=== PATIENT | female | born 1935 | race Caucasian/White ===

== ENCOUNTER 2016-10-28 08:00 | Outpatient (CLI) | payer MEDICARE, OTHER | END 2016-10-28 08:01 | disposition home or self-care (01) | DX: I26.99 Other pulmonary embolism without acute cor pulmonale (principal) ==

== ENCOUNTER 2016-11-11 08:00 | Outpatient (CLI) | payer MEDICARE, OTHER | END 2016-11-11 08:01 | disposition home or self-care (01) | DX: M10.9 Gout, unspecified (principal); I26.99 Other pulmonary embolism without acute cor pulmonale ==

== ENCOUNTER 2016-11-11 14:06 | Outpatient (CLI) | payer MEDICARE, OTHER | END 2016-11-11 14:07 | disposition home or self-care (01) | DX: I26.99 Other pulmonary embolism without acute cor pulmonale (principal) ==

== ENCOUNTER 2016-12-01 10:35 | Outpatient (CLI) | payer MEDICARE, OTHER | END 2016-12-01 23:59 | DX: I26.99 Other pulmonary embolism without acute cor pulmonale (principal) ==

== ENCOUNTER 2016-12-11 08:00 | Outpatient (CLI) | payer MEDICARE, OTHER | END 2016-12-11 23:59 | disposition home or self-care (01) | DX: I26.99 Other pulmonary embolism without acute cor pulmonale (principal) ==

== ENCOUNTER 2016-12-25 13:09 | Outpatient (CLI) | payer MEDICARE, OTHER | END 2016-12-25 13:10 | disposition home or self-care (01) | DX: I26.99 Other pulmonary embolism without acute cor pulmonale (principal) ==

== ENCOUNTER 2016-12-29 10:07 | Outpatient (CLI) | payer MEDICARE, OTHER | END 2016-12-29 10:08 | disposition home or self-care (01) | DX: I26.99 Other pulmonary embolism without acute cor pulmonale (principal) ==

== ENCOUNTER 2017-01-07 08:00 | Outpatient (CLI) | payer MEDICARE, OTHER | END 2017-01-07 23:59 | DX: I26.99 Other pulmonary embolism without acute cor pulmonale (principal) ==

== ENCOUNTER 2017-01-14 15:36 | Outpatient (CLI) | payer MEDICARE, OTHER | END 2017-01-14 15:37 | disposition home or self-care (01) | DX: I26.99 Other pulmonary embolism without acute cor pulmonale (principal) ==

== ENCOUNTER 2017-01-15 09:34 | Outpatient (CLI) | payer MEDICARE, OTHER ==
[2017-01-15] MEDS ORDERED: REGADENOSON 0.4 MG/5 ML SYRINGE IVP ONE (12:16)
== END 2017-01-15 09:35 | disposition home or self-care (01) ==
DX: I25.810 Atherosclerosis of coronary artery bypass graft(s) without angina pectoris (principal); I25.9 Chronic ischemic heart disease, unspecified; I25.2 Old myocardial infarction; Z95.1 Presence of aortocoronary bypass graft
CPT/HCPCS: 78452; 93017; A9500; J2785

== ENCOUNTER 2017-01-16 11:51 | Outpatient (CLI) | payer MEDICARE, OTHER | END 2017-01-16 23:59 | DX: E87.6 Hypokalemia (principal); R25.2 Cramp and spasm; M10.9 Gout, unspecified ==

== ENCOUNTER 2017-01-27 08:00 | Outpatient (CLI) | payer MEDICARE, OTHER | END 2017-01-27 08:01 | DX: I26.99 Other pulmonary embolism without acute cor pulmonale (principal) ==

== ENCOUNTER 2017-01-29 08:00 | Outpatient (CLI) | payer MEDICARE, OTHER | END 2017-01-29 08:01 | disposition home or self-care (01) | DX: I26.99 Other pulmonary embolism without acute cor pulmonale (principal) ==

== ENCOUNTER 2017-02-06 09:04 | Outpatient (CLI) | payer MEDICARE, OTHER | END 2017-02-06 23:59 | DX: I26.99 Other pulmonary embolism without acute cor pulmonale (principal) ==

== ENCOUNTER 2017-02-16 11:35 | Outpatient (CLI) | payer MEDICARE, OTHER | END 2017-02-16 23:59 | disposition home or self-care (01) | DX: I26.99 Other pulmonary embolism without acute cor pulmonale (principal) ==

== ENCOUNTER 2017-02-24 14:11 | Outpatient (CLI) | payer MEDICARE, OTHER | END 2017-02-24 14:12 | disposition home or self-care (01) | DX: I26.99 Other pulmonary embolism without acute cor pulmonale (principal) ==

== ENCOUNTER 2017-03-06 15:07 | Outpatient (CLI) | payer MEDICARE, OTHER | END 2017-03-06 15:08 | disposition home or self-care (01) | LOC: LAB.N 15:07 | PROVIDERS: ATTEND Nurse Practitioner Gerontology | DX: I26.99 Other pulmonary embolism without acute cor pulmonale (principal) | CPT/HCPCS: 85610 ==

== ENCOUNTER 2017-03-13 13:59 | Outpatient (CLI) | payer MEDICARE, OTHER | END 2017-03-13 14:00 | disposition home or self-care (01) | LOC: LAB.N 13:59 | PROVIDERS: ATTEND Nurse Practitioner Gerontology | DX: I26.99 Other pulmonary embolism without acute cor pulmonale (principal) | CPT/HCPCS: 85610 ==

== ENCOUNTER 2017-03-20 11:30 | Outpatient (CLI) | payer MEDICARE, OTHER | END 2017-03-20 11:31 | disposition home or self-care (01) | DX: I26.99 Other pulmonary embolism without acute cor pulmonale (principal) ==

== ENCOUNTER 2017-03-23 08:00 | Outpatient (CLI) | payer MEDICARE, OTHER | END 2017-03-23 08:01 | disposition home or self-care (01) | LOC: LAB.N 08:00 | PROVIDERS: ATTEND Nurse Practitioner Gerontology | DX: I26.99 Other pulmonary embolism without acute cor pulmonale (principal) | CPT/HCPCS: 85610 ==

== ENCOUNTER 2017-03-30 08:00 | Outpatient (CLI) | payer MEDICARE, OTHER ==
[2017-03-30 19:19] LABS: CALCIUM 9.2 mg/dL (8.5-10.3); POTASSIUM 4.2 mmol/L (3.5-5.0)
== END 2017-03-30 08:01 ==
LOC: LAB.N 08:00
PROVIDERS: ATTEND Internal Medicine Cardiovascular Disease
DX: I25.810 Atherosclerosis of coronary artery bypass graft(s) without angina pectoris (principal)
CPT/HCPCS: 36415; 80048; 85610

== ENCOUNTER 2017-03-30 08:00 | Outpatient (CLI) | payer MEDICARE, OTHER | END 2017-03-30 08:01 | LOC: LAB.N 08:00 | PROVIDERS: ATTEND Nurse Practitioner Gerontology | DX: I26.99 Other pulmonary embolism without acute cor pulmonale (principal) | CPT/HCPCS: 85610 ==

== ENCOUNTER 2017-04-06 14:07 | Outpatient (CLI) | payer MEDICARE, OTHER | END 2017-04-06 14:08 | disposition home or self-care (01) | LOC: LAB.N 14:07 | PROVIDERS: ATTEND Nurse Practitioner Gerontology | DX: I26.99 Other pulmonary embolism without acute cor pulmonale (principal) | CPT/HCPCS: 85610 ==

== ENCOUNTER 2017-04-13 13:52 | Outpatient (CLI) | payer MEDICARE, OTHER | END 2017-04-13 13:53 | disposition home or self-care (01) | LOC: LAB.N 13:52 | PROVIDERS: ATTEND Nurse Practitioner Gerontology | DX: I26.99 Other pulmonary embolism without acute cor pulmonale (principal) | CPT/HCPCS: 85610 ==

== ENCOUNTER 2017-04-20 22:11 | Outpatient (CLI) | payer MEDICARE, OTHER | END 2017-04-20 22:12 | disposition home or self-care (01) | LOC: LAB.N 22:11 | PROVIDERS: ATTEND Nurse Practitioner Gerontology | DX: I26.99 Other pulmonary embolism without acute cor pulmonale (principal) | CPT/HCPCS: 85610 ==

== ENCOUNTER 2017-04-27 08:00 | Outpatient (CLI) | payer MEDICARE, OTHER | END 2017-04-27 08:01 | disposition home or self-care (01) | DX: I26.99 Other pulmonary embolism without acute cor pulmonale (principal) ==

== ENCOUNTER 2017-05-11 11:23 | Outpatient (CLI) | payer MEDICARE, OTHER | END 2017-05-11 23:59 | disposition home or self-care (01) | LOC: LAB.N 11:23 | PROVIDERS: ATTEND Nurse Practitioner Gerontology | DX: I26.99 Other pulmonary embolism without acute cor pulmonale (principal) | CPT/HCPCS: 85610 ==

== ENCOUNTER 2017-05-18 11:20 | Outpatient (CLI) | payer MEDICARE, OTHER | END 2017-05-18 11:21 | disposition home or self-care (01) | LOC: LAB.N 11:20 | PROVIDERS: ATTEND Nurse Practitioner Gerontology | DX: I26.99 Other pulmonary embolism without acute cor pulmonale (principal) | CPT/HCPCS: 85610 ==

== ENCOUNTER 2017-05-25 08:00 | Outpatient (CLI) | payer MEDICARE, OTHER | END 2017-05-25 08:01 | disposition home or self-care (01) | LOC: LAB.N 08:00 | PROVIDERS: ATTEND Nurse Practitioner Gerontology | DX: I26.99 Other pulmonary embolism without acute cor pulmonale (principal) | CPT/HCPCS: 85610 ==

== ENCOUNTER 2017-06-05 08:00 | Outpatient (CLI) | payer MEDICARE, OTHER | END 2017-06-05 08:01 | disposition home or self-care (01) | LOC: LAB.N 08:00 | PROVIDERS: ATTEND Nurse Practitioner Gerontology | DX: I26.99 Other pulmonary embolism without acute cor pulmonale (principal) | CPT/HCPCS: 85610 ==

== ENCOUNTER 2017-06-12 10:57 | Outpatient (CLI) | payer MEDICARE, OTHER | END 2017-06-12 10:58 | disposition home or self-care (01) | LOC: LAB.N 10:57 | PROVIDERS: ATTEND Nurse Practitioner Gerontology | DX: I26.99 Other pulmonary embolism without acute cor pulmonale (principal) | CPT/HCPCS: 85610 ==

== ENCOUNTER 2017-06-18 09:39 | Outpatient (CLI) | payer MEDICARE, OTHER | END 2017-06-18 09:40 | disposition home or self-care (01) | LOC: LAB.N 09:39 | PROVIDERS: ATTEND Nurse Practitioner Gerontology | DX: I26.99 Other pulmonary embolism without acute cor pulmonale (principal) | CPT/HCPCS: 85610 ==

== ENCOUNTER 2017-06-26 08:00 | Outpatient (CLI) | payer MEDICARE, OTHER ==
[2017-06-26 18:57] LABS: BASOPHILS # (AUTO) 0.1 10^3/uL (0.0-0.1); BASOPHILS % (AUTO) 0.7 %; EOSINOPHILS # (AUTO) 0.2 10^3/uL (0.0-0.7); EOSINOPHILS % (AUTO) 2.1 %; HCT - HEMATOCRIT 37.5 % (37.0-47.0); HGB - HEMOGLOBIN 12.3 g/dL (12.0-16.0); LYMPHOCYTES # (AUTO) 1.8 10^3/uL (1.5-3.5); LYMPHOCYTES % (AUTO) 24.3 %; MEAN CORPUSCULAR HEMOGLOBIN 30.8 pg (27.0-31.0); MEAN CORPUSCULAR HGB CONC 32.9 g/dL (32.0-36.0); MEAN CORPUSCULAR VOLUME 93.6 fL (81.0-99.0); MEAN PLATELET VOLUME 8.7 fL (7.9-10.8); MONOCYTES # (AUTO) 0.6 10^3/uL (0.0-1.0); MONOCYTES % (AUTO) 7.6 %; NEUTROPHILS # (AUTO) 4.8 10^3/uL (1.5-6.6); NEUTROPHILS % (AUTO) 65.3 %; NUCLEATED RED BLOOD CELLS AUTO 0.1 /100WBC; RED CELL DISTRIBUTION WIDTH 14.4 % (12.0-15.0); UNCORRECTED WHITE BLOOD COUNT 7.3 x10^3/uL; WHITE BLOOD COUNT 7.3 x10^3/uL (4.8-10.8)
[2017-06-26 19:06] LABS: INR 3.2 (0.8-1.2)
[2017-06-26 19:09] LABS: CREATININE 1.1 mg/dL (0.4-1.0); POTASSIUM 3.7 mmol/L (3.5-5.0)
== END 2017-06-26 08:01 | disposition home or self-care (01) ==
LOC: LAB.N 08:00
PROVIDERS: ATTEND Internal Medicine Cardiovascular Disease
DX: I25.5 Ischemic cardiomyopathy (principal)
CPT/HCPCS: 36415; 80048; 85025; 85610

== ENCOUNTER 2017-07-02 13:34 | Outpatient (CLI) | payer MEDICARE, OTHER | END 2017-07-02 13:35 | disposition home or self-care (01) | LOC: LAB.N 13:34 | PROVIDERS: ATTEND Nurse Practitioner Gerontology | DX: I26.99 Other pulmonary embolism without acute cor pulmonale (principal) | CPT/HCPCS: 85610 ==

== ENCOUNTER 2017-07-14 11:04 | Outpatient (CLI) | payer MEDICARE, OTHER | END 2017-07-14 11:05 | disposition home or self-care (01) | LOC: LAB.N 11:04 | PROVIDERS: ATTEND Nurse Practitioner Gerontology | DX: I26.99 Other pulmonary embolism without acute cor pulmonale (principal) | CPT/HCPCS: 85610 ==

== ENCOUNTER 2017-07-21 08:00 | Outpatient (CLI) | payer MEDICARE, OTHER | END 2017-07-21 08:01 | disposition home or self-care (01) | LOC: LAB.N 08:00 | PROVIDERS: ATTEND Nurse Practitioner Gerontology | DX: I26.99 Other pulmonary embolism without acute cor pulmonale (principal) | CPT/HCPCS: 85610 ==

== ENCOUNTER 2017-07-28 08:00 | Outpatient (CLI) | payer MEDICARE, OTHER | END 2017-07-28 08:01 | disposition home or self-care (01) | LOC: LAB.N 08:00 | PROVIDERS: ATTEND Nurse Practitioner Gerontology | DX: I26.99 Other pulmonary embolism without acute cor pulmonale (principal) | CPT/HCPCS: 85610 ==

== ENCOUNTER 2017-08-04 01:01 | Outpatient (CLI) | payer MEDICARE, OTHER | END 2017-08-04 01:02 | disposition home or self-care (01) | LOC: LAB.N 01:01 | PROVIDERS: ATTEND Nurse Practitioner Gerontology | DX: I26.99 Other pulmonary embolism without acute cor pulmonale (principal) | CPT/HCPCS: 85610 ==

== ENCOUNTER 2017-08-11 13:44 | Outpatient (CLI) | payer MEDICARE, OTHER | END 2017-08-11 13:45 | disposition home or self-care (01) | LOC: LAB.N 13:44 | PROVIDERS: ATTEND Nurse Practitioner Gerontology | DX: I26.99 Other pulmonary embolism without acute cor pulmonale (principal) | CPT/HCPCS: 85610 ==

== ENCOUNTER 2017-08-17 08:00 | Outpatient (CLI) | payer MEDICARE, OTHER | END 2017-08-17 23:59 | disposition home or self-care (01) | LOC: LAB.N 08:00 | PROVIDERS: ATTEND Nurse Practitioner Gerontology | DX: I26.99 Other pulmonary embolism without acute cor pulmonale (principal) | CPT/HCPCS: 85610 ==

== ENCOUNTER 2017-08-31 13:15 | Outpatient (CLI) | payer MEDICARE, OTHER | END 2017-08-31 13:16 | disposition home or self-care (01) | LOC: LAB.N 13:15 | PROVIDERS: ATTEND Nurse Practitioner Gerontology | DX: I26.99 Other pulmonary embolism without acute cor pulmonale (principal) | CPT/HCPCS: 85610 ==

== ENCOUNTER 2017-09-07 13:20 | Outpatient (CLI) | payer MEDICARE, OTHER | END 2017-09-07 13:21 | disposition home or self-care (01) | LOC: LAB.N 13:20 | PROVIDERS: ATTEND Nurse Practitioner Gerontology | DX: I26.99 Other pulmonary embolism without acute cor pulmonale (principal) | CPT/HCPCS: 85610 ==

== ENCOUNTER 2017-09-14 13:21 | Outpatient (CLI) | payer MEDICARE, OTHER | END 2017-09-14 13:22 | LOC: LAB.N 13:21 | PROVIDERS: ATTEND Nurse Practitioner Gerontology | DX: I26.99 Other pulmonary embolism without acute cor pulmonale (principal) | CPT/HCPCS: 85610 ==

== ENCOUNTER 2017-09-16 13:45 | Outpatient (CLI) | payer MEDICARE, OTHER | END 2017-09-16 13:46 | LOC: LAB.N 13:45 | PROVIDERS: ATTEND Internal Medicine Cardiovascular Disease | DX: I25.5 Ischemic cardiomyopathy (principal) | CPT/HCPCS: 87640 ==

== ENCOUNTER 2017-09-18 13:23 | Outpatient (CLI) | payer MEDICARE, OTHER | END 2017-09-18 13:24 | disposition home or self-care (01) | LOC: LAB.N 13:23 | PROVIDERS: ATTEND Nurse Practitioner Gerontology | DX: I26.99 Other pulmonary embolism without acute cor pulmonale (principal) | CPT/HCPCS: 85610 ==

== ENCOUNTER 2017-09-25 01:01 | Outpatient (CLI) | payer MEDICARE, OTHER | END 2017-09-25 01:02 | disposition home or self-care (01) | LOC: LAB.N 01:01 | PROVIDERS: ATTEND Nurse Practitioner Gerontology | DX: I26.99 Other pulmonary embolism without acute cor pulmonale (principal) | CPT/HCPCS: 85610 ==

== ENCOUNTER 2017-10-09 14:02 | Outpatient (CLI) | payer MEDICARE, OTHER | END 2017-10-09 14:03 | disposition home or self-care (01) | LOC: LAB.N 14:02 | PROVIDERS: ATTEND Nurse Practitioner Gerontology | DX: I26.99 Other pulmonary embolism without acute cor pulmonale (principal) | CPT/HCPCS: 85610 ==

== ENCOUNTER 2017-10-21 19:32 | Outpatient (CLI) | payer MEDICARE, OTHER | END 2017-10-21 19:33 | disposition home or self-care (01) | LOC: EMS 19:32 | PROVIDERS: ATTEND Surgery | DX: Z45.2 Encounter for adjustment and management of vascular access device (principal) ==

== ENCOUNTER 2017-10-29 08:00 | Outpatient (CLI) | payer MEDICARE, OTHER | END 2017-10-29 08:01 | LOC: LAB.N 08:00 | PROVIDERS: ATTEND Nurse Practitioner Gerontology | DX: I26.99 Other pulmonary embolism without acute cor pulmonale (principal) | CPT/HCPCS: 85610 ==

== ENCOUNTER 2017-11-13 13:21 | Outpatient (CLI) | payer MEDICARE, OTHER | END 2017-11-13 13:22 | disposition home or self-care (01) | LOC: LAB.N 13:21 | PROVIDERS: ATTEND Nurse Practitioner Gerontology | DX: I26.99 Other pulmonary embolism without acute cor pulmonale (principal) | CPT/HCPCS: 85610 ==

== ENCOUNTER 2017-11-17 15:47 | Outpatient (CLI) | payer MEDICARE, OTHER | END 2017-11-17 15:48 | disposition home or self-care (01) | LOC: LAB.N 15:47 | PROVIDERS: ATTEND Nurse Practitioner Gerontology | DX: I26.99 Other pulmonary embolism without acute cor pulmonale (principal) | CPT/HCPCS: 85610 ==

== ENCOUNTER 2017-12-07 08:00 | Outpatient (CLI) | payer MEDICARE, OTHER | END 2017-12-07 08:01 | disposition home or self-care (01) | LOC: LAB.N 08:00 | PROVIDERS: ATTEND Nurse Practitioner Gerontology | DX: I26.99 Other pulmonary embolism without acute cor pulmonale (principal) | CPT/HCPCS: 85610 ==

== ENCOUNTER 2017-12-14 08:00 | Outpatient (CLI) | payer MEDICARE, OTHER | END 2017-12-14 08:01 | disposition home or self-care (01) | LOC: LAB.N 08:00 | PROVIDERS: ATTEND Nurse Practitioner Gerontology | DX: I26.99 Other pulmonary embolism without acute cor pulmonale (principal) | CPT/HCPCS: 85610 ==

== ENCOUNTER 2017-12-16 08:00 | Outpatient (CLI) | payer MEDICARE, OTHER | END 2017-12-16 08:01 | disposition home or self-care (01) | LOC: LAB.N 08:00 | PROVIDERS: ATTEND Nurse Practitioner Gerontology | DX: I26.99 Other pulmonary embolism without acute cor pulmonale (principal) | CPT/HCPCS: 85610 ==

== ENCOUNTER 2017-12-17 11:19 | Outpatient (CLI) | payer MEDICARE, OTHER | END 2017-12-17 11:20 | disposition home or self-care (01) | LOC: LAB.N 11:19 | PROVIDERS: ATTEND Nurse Practitioner Gerontology | DX: I26.99 Other pulmonary embolism without acute cor pulmonale (principal) | CPT/HCPCS: 85610 ==

== ENCOUNTER 2017-12-18 11:42 | Outpatient (CLI) | payer MEDICARE, OTHER | END 2017-12-18 11:43 | disposition home or self-care (01) | LOC: LAB.N 11:42 | PROVIDERS: ATTEND Nurse Practitioner Gerontology | DX: I26.99 Other pulmonary embolism without acute cor pulmonale (principal) | CPT/HCPCS: 85610 ==

== ENCOUNTER 2017-12-21 13:42 | Outpatient (CLI) | payer MEDICARE, OTHER | END 2017-12-21 13:43 | disposition home or self-care (01) | LOC: LAB.N 13:42 | PROVIDERS: ATTEND Nurse Practitioner Gerontology | DX: I26.99 Other pulmonary embolism without acute cor pulmonale (principal) | CPT/HCPCS: 85610 ==

== ENCOUNTER 2017-12-25 08:00 | Outpatient (CLI) | payer MEDICARE, OTHER | END 2017-12-25 08:01 | disposition home or self-care (01) | LOC: LAB.N 08:00 | PROVIDERS: ATTEND Nurse Practitioner Gerontology | DX: I26.99 Other pulmonary embolism without acute cor pulmonale (principal) | CPT/HCPCS: 85610 ==

== ENCOUNTER 2018-01-01 13:27 | Outpatient (CLI) | payer MEDICARE, OTHER | END 2018-01-01 13:28 | disposition home or self-care (01) | LOC: LAB.N 13:27 | PROVIDERS: ATTEND Nurse Practitioner Gerontology | DX: I26.99 Other pulmonary embolism without acute cor pulmonale (principal) | CPT/HCPCS: 85610 ==

== ENCOUNTER 2018-01-02 14:48 | Outpatient (CLI) | payer MEDICARE, OTHER ==
--- NOTE | 2018-01-03 16:58 | Ultrasound Report ---
EXAM: PELVIC ULTRASOUND EXAM DATE: 01/02/2018 04:10 PM. CLINICAL HISTORY: ABNORMAL VAGINAL BLEEDING. COMPARISON: None. TECHNIQUE: Realtime transabdominal pelvic scan performed to identify the uterus and adnexa and as an overview of other pelvic structures, followed by transvaginal scan to provide greater detail of the u terus and adnexa, with static image documentation. FINDINGS: Uterus: Removed. No masses seen. Ovaries: Removed. No masses seen. Free Fluid: None. Other: Gassy pelvis. IMPRESSION: Negative pelvic ultrasound post hysterectomy and bilateral oophorectomy. [facility] Referring Provider Line: [phone] SITE ID: [id number]
== END 2018-01-02 14:49 | disposition home or self-care (01) ==
LOC: DI 14:48
PROVIDERS: ATTEND Nurse Practitioner Gerontology
DX: N93.9 Abnormal uterine and vaginal bleeding, unspecified (principal); Z90.722 Acquired absence of ovaries, bilateral; Z90.710 Acquired absence of both cervix and uterus
CPT/HCPCS: 76830; 76856

== ENCOUNTER 2018-01-05 13:39 | Outpatient (CLI) | payer MEDICARE, OTHER | END 2018-01-05 13:40 | disposition home or self-care (01) | LOC: LAB.N 13:39 | PROVIDERS: ATTEND Nurse Practitioner Gerontology | DX: I26.99 Other pulmonary embolism without acute cor pulmonale (principal) | CPT/HCPCS: 85610 ==

== ENCOUNTER 2018-01-12 08:00 | Outpatient (CLI) | payer MEDICARE, OTHER | END 2018-01-12 08:01 | LOC: LAB.N 08:00 | PROVIDERS: ATTEND Nurse Practitioner Gerontology | DX: I26.99 Other pulmonary embolism without acute cor pulmonale (principal) | CPT/HCPCS: 85610 ==

== ENCOUNTER 2018-01-15 13:50 | Outpatient (CLI) | payer MEDICARE, OTHER | END 2018-01-15 13:51 | disposition home or self-care (01) | LOC: LAB.N 13:50 | PROVIDERS: ATTEND Nurse Practitioner Gerontology | DX: I26.99 Other pulmonary embolism without acute cor pulmonale (principal) | CPT/HCPCS: 85610 ==

== ENCOUNTER 2018-01-19 13:40 | Outpatient (CLI) | payer MEDICARE, OTHER | END 2018-01-19 13:41 | disposition home or self-care (01) | LOC: LAB.N 13:40 | PROVIDERS: ATTEND Nurse Practitioner Gerontology | DX: I26.99 Other pulmonary embolism without acute cor pulmonale (principal) | CPT/HCPCS: 85610 ==

== ENCOUNTER 2018-01-26 08:00 | Outpatient (CLI) | payer MEDICARE, OTHER | END 2018-01-26 08:01 | disposition home or self-care (01) | LOC: LAB.N 08:00 | PROVIDERS: ATTEND Nurse Practitioner Gerontology | DX: I26.99 Other pulmonary embolism without acute cor pulmonale (principal) | CPT/HCPCS: 85610 ==

== ENCOUNTER 2018-02-02 08:00 | Outpatient (CLI) | payer MEDICARE, OTHER | END 2018-02-02 08:01 | LOC: LAB.N 08:00 | PROVIDERS: ATTEND Nurse Practitioner Gerontology | DX: I26.99 Other pulmonary embolism without acute cor pulmonale (principal) | CPT/HCPCS: 85610 ==

== ENCOUNTER 2018-02-16 13:39 | Outpatient (CLI) | payer MEDICARE, OTHER | END 2018-02-16 13:40 | LOC: LAB.N 13:39 | PROVIDERS: ATTEND Nurse Practitioner Gerontology | DX: I26.99 Other pulmonary embolism without acute cor pulmonale (principal) | CPT/HCPCS: 85610 ==

== ENCOUNTER 2018-03-01 14:29 | Outpatient (CLI) | payer MEDICARE, OTHER | END 2018-03-01 14:30 | disposition home or self-care (01) | LOC: LAB.N 14:29 | PROVIDERS: ATTEND Nurse Practitioner Gerontology | DX: I26.99 Other pulmonary embolism without acute cor pulmonale (principal) | CPT/HCPCS: 85610 ==

== ENCOUNTER 2018-03-08 08:00 | Outpatient (CLI) | payer MEDICARE, OTHER | END 2018-03-08 08:01 | LOC: LAB.N 08:00 | PROVIDERS: ATTEND Nurse Practitioner Gerontology | DX: I26.99 Other pulmonary embolism without acute cor pulmonale (principal) | CPT/HCPCS: 85610 ==

== ENCOUNTER 2018-03-12 14:32 | Outpatient (CLI) | payer MEDICARE, OTHER | END 2018-03-12 14:33 | disposition home or self-care (01) | LOC: LAB.N 14:32 | PROVIDERS: ATTEND Nurse Practitioner Gerontology | DX: I26.99 Other pulmonary embolism without acute cor pulmonale (principal) | CPT/HCPCS: 85610 ==

== ENCOUNTER 2018-03-19 13:11 | Outpatient (CLI) | payer MEDICARE, OTHER | END 2018-03-19 13:12 | disposition home or self-care (01) | LOC: LAB.N 13:11 | PROVIDERS: ATTEND Nurse Practitioner Gerontology | DX: I26.99 Other pulmonary embolism without acute cor pulmonale (principal) | CPT/HCPCS: 85610 ==

== ENCOUNTER 2018-03-22 14:57 | Outpatient (CLI) | payer MEDICARE, OTHER | END 2018-03-22 14:58 | disposition home or self-care (01) | LOC: LAB.N 14:57 | PROVIDERS: ATTEND Nurse Practitioner Gerontology | DX: I26.99 Other pulmonary embolism without acute cor pulmonale (principal) | CPT/HCPCS: 85610 ==

== ENCOUNTER 2018-03-29 13:11 | Outpatient (CLI) | payer MEDICARE, OTHER | END 2018-03-29 13:12 | disposition home or self-care (01) | LOC: LAB.N 13:11 | PROVIDERS: ATTEND Nurse Practitioner Gerontology | DX: I26.99 Other pulmonary embolism without acute cor pulmonale (principal) | CPT/HCPCS: 85610 ==

== ENCOUNTER 2018-04-05 08:00 | Outpatient (CLI) | payer MEDICARE, OTHER | END 2018-04-05 08:01 | disposition home or self-care (01) | LOC: LAB.N 08:00 | PROVIDERS: ATTEND Nurse Practitioner Gerontology | DX: I26.99 Other pulmonary embolism without acute cor pulmonale (principal) | CPT/HCPCS: 85610 ==

== ENCOUNTER 2018-04-12 08:00 | Outpatient (CLI) | END 2018-04-12 08:01 | disposition home or self-care (01) ==

== ENCOUNTER 2018-04-26 10:24 | Outpatient (CLI) | payer MEDICARE, OTHER ==
[2018-04-26 13:06] LABS: BASOPHILS % (AUTO) 0.4 %; EOSINOPHILS # (AUTO) 0.1 10^3/uL (0.0-0.7); EOSINOPHILS % (AUTO) 1.5 %; LYMPHOCYTES # (AUTO) 1.6 10^3/uL (1.5-3.5); MEAN CORPUSCULAR HEMOGLOBIN 30.8 pg (27.0-31.0); MEAN CORPUSCULAR HGB CONC 32.7 g/dL (32.0-36.0); MEAN CORPUSCULAR VOLUME 94.2 fL (81.0-99.0); MEAN PLATELET VOLUME 8.5 fL (7.9-10.8); MONOCYTES # (AUTO) 0.5 10^3/uL (0.0-1.0); MONOCYTES % (AUTO) 6.4 %; NEUTROPHILS # (AUTO) 5.9 10^3/uL (1.5-6.6); NEUTROPHILS % (AUTO) 71.7 %; PLT - PLATELET COUNT 282 10^3/uL (130-450); RED BLOOD COUNT 4.23 10^6/uL (4.20-5.40); RED CELL DISTRIBUTION WIDTH 14.1 % (12.0-15.0); WHITE BLOOD COUNT 8.2 x10^3/uL (4.8-10.8)
== END 2018-04-26 10:25 ==
LOC: LAB.N 10:24
PROVIDERS: ATTEND Nurse Practitioner Gerontology
DX: I26.99 Other pulmonary embolism without acute cor pulmonale (principal); M25.562 Pain in left knee
CPT/HCPCS: 36415; 85025; 85610; 85651; 86140

== ENCOUNTER 2018-04-30 08:57 | Outpatient (CLI) | payer MEDICARE, OTHER | END 2018-04-30 08:58 | disposition home or self-care (01) | LOC: LAB.N 08:57 | PROVIDERS: ATTEND Nurse Practitioner Gerontology | DX: I26.99 Other pulmonary embolism without acute cor pulmonale (principal) | CPT/HCPCS: 85610 ==

== ENCOUNTER 2018-05-07 08:00 | Outpatient (CLI) | payer MEDICARE, OTHER | END 2018-05-07 08:01 | disposition home or self-care (01) | LOC: LAB.N 08:00 | PROVIDERS: ATTEND Nurse Practitioner Gerontology | DX: I26.99 Other pulmonary embolism without acute cor pulmonale (principal) | CPT/HCPCS: 85610 ==

== ENCOUNTER 2018-05-14 11:27 | Outpatient (CLI) | payer MEDICARE, OTHER | END 2018-05-14 11:28 | disposition home or self-care (01) | LOC: LAB.N 11:27 | PROVIDERS: ATTEND Nurse Practitioner Gerontology | DX: I26.99 Other pulmonary embolism without acute cor pulmonale (principal) | CPT/HCPCS: 85610 ==

== ENCOUNTER 2018-05-24 13:17 | Outpatient (CLI) | payer MEDICARE, OTHER | END 2018-05-24 13:18 | disposition home or self-care (01) | LOC: LAB.N 13:17 | PROVIDERS: ATTEND Nurse Practitioner Gerontology | DX: I26.99 Other pulmonary embolism without acute cor pulmonale (principal) | CPT/HCPCS: 85610 ==

== ENCOUNTER 2018-05-31 08:00 | Outpatient (CLI) | payer MEDICARE, OTHER | END 2018-05-31 08:01 | LOC: LAB.N 08:00 | PROVIDERS: ATTEND Nurse Practitioner Gerontology | DX: I26.99 Other pulmonary embolism without acute cor pulmonale (principal) | CPT/HCPCS: 85610 ==

== ENCOUNTER 2018-06-14 08:00 | Outpatient (CLI) | payer MEDICARE, OTHER | END 2018-06-14 08:01 | disposition home or self-care (01) | LOC: LAB.N 08:00 | PROVIDERS: ATTEND Nurse Practitioner Gerontology | DX: I26.99 Other pulmonary embolism without acute cor pulmonale (principal) | CPT/HCPCS: 85610 ==

== ENCOUNTER 2018-06-25 14:15 | Outpatient (CLI) | payer MEDICARE, OTHER | END 2018-06-25 14:16 | disposition home or self-care (01) | LOC: LAB.N 14:15 | PROVIDERS: ATTEND Nurse Practitioner Gerontology | DX: I26.99 Other pulmonary embolism without acute cor pulmonale (principal) | CPT/HCPCS: 85610 ==

== ENCOUNTER 2018-06-28 08:00 | Outpatient (CLI) | payer MEDICARE, OTHER | END 2018-06-28 08:01 | LOC: LAB.N 08:00 | PROVIDERS: ATTEND Nurse Practitioner Gerontology | DX: I48.91 Unspecified atrial fibrillation (principal) | CPT/HCPCS: 85610 ==

== ENCOUNTER 2018-07-05 15:07 | Outpatient (CLI) | payer MEDICARE, OTHER | END 2018-07-05 15:08 | disposition home or self-care (01) | LOC: LAB.N 15:07 | PROVIDERS: ATTEND Nurse Practitioner Gerontology | DX: I26.99 Other pulmonary embolism without acute cor pulmonale (principal) | CPT/HCPCS: 85610 ==

== ENCOUNTER 2018-07-12 08:00 | Outpatient (CLI) | payer MEDICARE, OTHER | END 2018-07-12 08:01 | disposition home or self-care (01) | LOC: LAB.N 08:00 | PROVIDERS: ATTEND Nurse Practitioner Gerontology | DX: I26.99 Other pulmonary embolism without acute cor pulmonale (principal) | CPT/HCPCS: 85610 ==

== ENCOUNTER 2018-07-22 13:39 | Outpatient (CLI) | payer MEDICARE, OTHER | END 2018-07-22 13:40 | LOC: LAB.N 13:39 | PROVIDERS: ATTEND Nurse Practitioner Gerontology | DX: I26.99 Other pulmonary embolism without acute cor pulmonale (principal) | CPT/HCPCS: 85610 ==

== ENCOUNTER 2018-09-03 11:30 | Outpatient (CLI) | payer MEDICARE, OTHER | END 2018-09-03 11:31 | disposition home or self-care (01) | LOC: LAB.N 11:30 | PROVIDERS: ATTEND Nurse Practitioner Gerontology | DX: I26.99 Other pulmonary embolism without acute cor pulmonale (principal) | CPT/HCPCS: 85610 ==

== ENCOUNTER 2018-09-08 09:51 | Outpatient (CLI) | payer MEDICARE, OTHER ==
[2018-08-30 18:56] LABS: INR 1.2 (0.8-1.2); PT - PROTHROMBIN TIME 13.9 secs (9.9-12.6)
== END 2018-09-08 09:52 | disposition home or self-care (01) ==
LOC: LAB.N 09:51
PROVIDERS: ATTEND Nurse Practitioner Gerontology
DX: Z79.01 Long term (current) use of anticoagulants (principal); I26.99 Other pulmonary embolism without acute cor pulmonale
CPT/HCPCS: 36415; 85610

== ENCOUNTER 2018-09-08 13:58 | Outpatient (CLI) | payer MEDICARE, OTHER | END 2018-09-08 13:59 | disposition home or self-care (01) | LOC: LAB.N 13:58 | PROVIDERS: ATTEND Nurse Practitioner Gerontology | DX: I26.99 Other pulmonary embolism without acute cor pulmonale (principal); Z79.01 Long term (current) use of anticoagulants | CPT/HCPCS: 36415; 85610 ==

== ENCOUNTER 2018-09-13 08:00 | Outpatient (CLI) | payer MEDICARE, OTHER | END 2018-09-13 23:59 | disposition home or self-care (01) | LOC: LAB.N 08:00 | PROVIDERS: ATTEND Nurse Practitioner Gerontology | DX: I26.99 Other pulmonary embolism without acute cor pulmonale (principal) | CPT/HCPCS: 85610 ==

== ENCOUNTER 2018-09-24 08:00 | Outpatient (CLI) | payer MEDICARE, OTHER | END 2018-09-24 23:59 | LOC: LAB.N 08:00 | PROVIDERS: ATTEND Nurse Practitioner Gerontology | DX: I26.99 Other pulmonary embolism without acute cor pulmonale (principal) | CPT/HCPCS: 85610 ==

== ENCOUNTER 2018-10-04 11:22 | Outpatient (CLI) | payer MEDICARE, OTHER | END 2018-10-04 23:59 | disposition home or self-care (01) | LOC: LAB.N 11:22 | PROVIDERS: ATTEND Nurse Practitioner Gerontology | DX: I26.99 Other pulmonary embolism without acute cor pulmonale (principal) | CPT/HCPCS: 85610 ==

== ENCOUNTER 2018-11-09 08:00 | Outpatient (CLI) | payer MEDICARE, OTHER | END 2018-11-09 23:59 | disposition home or self-care (01) | LOC: LAB.N 08:00 | PROVIDERS: ATTEND Nurse Practitioner Gerontology | DX: I26.99 Other pulmonary embolism without acute cor pulmonale (principal) | CPT/HCPCS: 85610 ==

== ENCOUNTER 2018-11-16 09:42 | Outpatient (CLI) | payer MEDICARE, OTHER | END 2018-11-16 09:43 | disposition home or self-care (01) | LOC: LAB.N 09:42 | PROVIDERS: ATTEND Nurse Practitioner Gerontology | DX: I26.99 Other pulmonary embolism without acute cor pulmonale (principal) | CPT/HCPCS: 85610 ==

== ENCOUNTER 2018-11-19 08:00 | Outpatient (CLI) | payer MEDICARE, OTHER | END 2018-11-19 23:59 | disposition home or self-care (01) | LOC: LAB.N 08:00 | PROVIDERS: ATTEND Nurse Practitioner Gerontology | DX: I26.99 Other pulmonary embolism without acute cor pulmonale (principal) | CPT/HCPCS: 85610 ==

== ENCOUNTER 2018-11-23 11:00 | Outpatient (CLI) | payer MEDICARE, OTHER | END 2018-12-13 23:59 | disposition home or self-care (01) | LOC: LAB.N 11:00 | PROVIDERS: ATTEND Nurse Practitioner Gerontology | DX: I26.99 Other pulmonary embolism without acute cor pulmonale (principal) | CPT/HCPCS: 85610 ==

== ENCOUNTER 2018-12-06 08:00 | Outpatient (CLI) | payer MEDICARE, OTHER | END 2018-12-06 23:59 | disposition home or self-care (01) | LOC: LAB.N 08:00 | PROVIDERS: ATTEND Nurse Practitioner Gerontology | DX: I26.99 Other pulmonary embolism without acute cor pulmonale (principal) | CPT/HCPCS: 85610 ==

== ENCOUNTER 2018-12-27 13:03 | Outpatient (CLI) | payer MEDICARE, OTHER | END 2018-12-27 23:59 | disposition home or self-care (01) | LOC: LAB.N 13:03 | PROVIDERS: ATTEND Nurse Practitioner Gerontology | DX: I26.99 Other pulmonary embolism without acute cor pulmonale (principal) | CPT/HCPCS: 85610 ==

== ENCOUNTER 2019-01-25 08:00 | Outpatient (CLI) | payer MEDICARE, OTHER ==
[2019-01-25 19:01] LABS: BASOPHILS % (AUTO) 0.5 %; EOSINOPHILS # (AUTO) 0.3 10^3/uL (0.0-0.7); EOSINOPHILS % (AUTO) 3.3 %; HGB - HEMOGLOBIN 12.5 g/dL (12.0-16.0); LYMPHOCYTES # (AUTO) 1.7 10^3/uL (1.5-3.5); LYMPHOCYTES % (AUTO) 21.2 %; MEAN CORPUSCULAR HEMOGLOBIN 30.7 pg (27.0-31.0); MEAN CORPUSCULAR HGB CONC 32.5 g/dL (32.0-36.0); MEAN CORPUSCULAR VOLUME 94.3 fL (81.0-99.0); MEAN PLATELET VOLUME 8.3 fL (7.9-10.8); MONOCYTES # (AUTO) 0.6 10^3/uL (0.0-1.0); MONOCYTES % (AUTO) 7.2 %; NEUTROPHILS # (AUTO) 5.4 10^3/uL (1.5-6.6); NEUTROPHILS % (AUTO) 67.8 %; PLT - PLATELET COUNT 276 10^3/uL (130-450); RED BLOOD COUNT 4.09 10^6/uL (4.20-5.40); RED CELL DISTRIBUTION WIDTH 14.2 % (12.0-15.0)
[2019-01-25 19:21] LABS: HEMOGLOBIN A1C 0.59 g/dL; HEMOGLOBIN A1C % 6.3 % (4.6-6.2)
[2019-01-25 19:29] LABS: ALBUMIN 3.6 g/dL (3.2-5.5); ALBUMIN/GLOBULIN RATIO 1.1 (1.0-2.2); ALKALINE PHOSPHATASE 81 IU/L (42-121); ALT ALANINE AMINOTRANSFERASE 15 IU/L (10-60); AST ASPARTATE AMINOTRANSFERASE 22 IU/L (10-42); BILIRUBIN,TOTAL 0.6 mg/dL (0.2-1.0); BUN - BLOOD UREA NITROGEN 15 mg/dL (6-20); CALCIUM 8.7 mg/dL (8.5-10.3); CARBON DIOXIDE - CO2 28 mmol/L (21-32); CHLORIDE 103 mmol/L (101-111); CHOL/HDL RATIO 3.1 (<4.4); CHOLESTEROL 144 mg/dL; CREATININE 0.8 mg/dL (0.4-1.0); GFR - MDRD 68 (>89); GLUCOSE 133 mg/dL (70-100); HDL CHOLESTEROL 47 mg/dL; LDL CHOLESTEROL,CALCULATED 68 mg/dL; LDL/HDL RATIO 1.4 (<4.4); SODIUM 136 mmol/L (135-145); TOTAL PROTEIN 6.9 g/dL (6.7-8.2); VLDL CHOLESTEROL 29 mg/dL
== END 2019-01-25 23:59 | disposition home or self-care (01) ==
LOC: LAB.N 08:00
PROVIDERS: ATTEND Nurse Practitioner Gerontology
DX: I26.99 Other pulmonary embolism without acute cor pulmonale (principal); E78.5 Hyperlipidemia, unspecified; E11.40 Type 2 diabetes mellitus with diabetic neuropathy, unspecified; I10 Essential (primary) hypertension
CPT/HCPCS: 36415; 80053; 80061; 83036; 83721; 85025; 85610

== ENCOUNTER 2019-02-08 08:00 | Outpatient (CLI) | payer MEDICARE, OTHER | END 2019-02-08 08:01 | disposition home or self-care (01) | LOC: LAB.N 08:00 | PROVIDERS: ATTEND Nurse Practitioner Gerontology | DX: I26.99 Other pulmonary embolism without acute cor pulmonale (principal) | CPT/HCPCS: 85610 ==

== ENCOUNTER 2019-02-23 13:33 | Outpatient (CLI) | payer MEDICARE, OTHER | END 2019-02-23 23:59 | disposition home or self-care (01) | LOC: LAB.N 13:33 | PROVIDERS: ATTEND Nurse Practitioner Gerontology | DX: I26.99 Other pulmonary embolism without acute cor pulmonale (principal) | CPT/HCPCS: 85610 ==

== ENCOUNTER 2019-03-09 13:57 | Outpatient (CLI) | payer MEDICARE, OTHER | END 2019-03-09 23:59 | disposition home or self-care (01) | LOC: LAB.N 13:57 | PROVIDERS: ATTEND Nurse Practitioner Gerontology | DX: I26.99 Other pulmonary embolism without acute cor pulmonale (principal) | CPT/HCPCS: 85610 ==

== ENCOUNTER 2019-04-08 08:00 | Outpatient (CLI) | payer MEDICARE, OTHER | END 2019-04-08 23:59 | disposition home or self-care (01) | LOC: LAB.N 08:00 | PROVIDERS: ATTEND Nurse Practitioner Gerontology | DX: I26.99 Other pulmonary embolism without acute cor pulmonale (principal) | CPT/HCPCS: 85610 ==

== ENCOUNTER 2019-05-13 08:00 | Outpatient (CLI) | payer MEDICARE, OTHER | END 2019-05-13 23:59 | disposition home or self-care (01) | LOC: LAB.N 08:00 | PROVIDERS: ATTEND Nurse Practitioner Gerontology | DX: I26.99 Other pulmonary embolism without acute cor pulmonale (principal) | CPT/HCPCS: 85610 ==

== ENCOUNTER 2019-05-20 | Outpatient (CLI) | payer MEDICARE, OTHER | END 2019-05-20 23:59 | disposition home or self-care (01) | DX: I26.99 Other pulmonary embolism without acute cor pulmonale (principal) ==

== ENCOUNTER 2019-05-27 08:00 | Outpatient (CLI) | payer MEDICARE, OTHER | END 2019-05-27 23:59 | disposition home or self-care (01) | LOC: LAB.N 08:00 | PROVIDERS: ATTEND Nurse Practitioner Gerontology | DX: I26.99 Other pulmonary embolism without acute cor pulmonale (principal) | CPT/HCPCS: 85610 ==

== ENCOUNTER 2019-06-10 13:53 | Outpatient (CLI) | payer MEDICARE, OTHER | END 2019-06-10 13:57 | disposition home or self-care (01) | LOC: LAB.N 13:53 | PROVIDERS: ATTEND Nurse Practitioner Gerontology | DX: I26.99 Other pulmonary embolism without acute cor pulmonale (principal) | CPT/HCPCS: 85610 ==

== ENCOUNTER 2019-06-17 08:00 | Outpatient (CLI) | payer MEDICARE, OTHER | END 2019-06-17 23:59 | disposition home or self-care (01) | LOC: LAB.N 08:00 | PROVIDERS: ATTEND Nurse Practitioner Gerontology | DX: I26.99 Other pulmonary embolism without acute cor pulmonale (principal) | CPT/HCPCS: 85610 ==

== ENCOUNTER 2019-06-24 08:00 | Outpatient (CLI) | payer MEDICARE, OTHER | END 2019-06-24 23:59 | disposition home or self-care (01) | LOC: LAB.N 08:00 | PROVIDERS: ATTEND Nurse Practitioner Gerontology | DX: I26.99 Other pulmonary embolism without acute cor pulmonale (principal) | CPT/HCPCS: 85610 ==

== ENCOUNTER 2019-07-08 13:39 | Outpatient (CLI) | payer MEDICARE, OTHER | END 2019-07-08 13:45 | disposition home or self-care (01) | LOC: LAB.N 13:39 | PROVIDERS: ATTEND Nurse Practitioner Gerontology | DX: I26.99 Other pulmonary embolism without acute cor pulmonale (principal) | CPT/HCPCS: 85610 ==

== ENCOUNTER 2019-07-12 13:39 | Outpatient (CLI) | payer MEDICARE, OTHER | END 2019-07-12 13:45 | disposition home or self-care (01) | LOC: LAB.N 13:39 | PROVIDERS: ATTEND Nurse Practitioner Gerontology | DX: I26.99 Other pulmonary embolism without acute cor pulmonale (principal) | CPT/HCPCS: 85610 ==

== ENCOUNTER 2019-07-20 12:20 | Outpatient (CLI) | payer MEDICARE, OTHER | END 2019-07-20 23:59 | disposition home or self-care (01) | LOC: LAB.N 12:20 | PROVIDERS: ATTEND Nurse Practitioner Gerontology | DX: I26.99 Other pulmonary embolism without acute cor pulmonale (principal) | CPT/HCPCS: 85610 ==

== ENCOUNTER 2019-07-27 08:00 | Outpatient (CLI) | payer MEDICARE, OTHER | END 2019-07-27 23:59 | disposition home or self-care (01) | LOC: LAB.N 08:00 | PROVIDERS: ATTEND Nurse Practitioner Gerontology | DX: I26.99 Other pulmonary embolism without acute cor pulmonale (principal) | CPT/HCPCS: 85610 ==

== ENCOUNTER 2019-08-03 08:00 | Outpatient (CLI) | payer MEDICARE, OTHER | END 2019-08-03 23:59 | disposition home or self-care (01) | LOC: LAB.N 08:00 | PROVIDERS: ATTEND Nurse Practitioner Gerontology | DX: I26.99 Other pulmonary embolism without acute cor pulmonale (principal) | CPT/HCPCS: 85610 ==

== ENCOUNTER 2019-08-10 08:00 | Outpatient (CLI) | payer MEDICARE, OTHER | END 2019-08-10 23:59 | disposition home or self-care (01) | LOC: LAB.N 08:00 | PROVIDERS: ATTEND Nurse Practitioner Gerontology | DX: I26.99 Other pulmonary embolism without acute cor pulmonale (principal) | CPT/HCPCS: 85610 ==

== ENCOUNTER 2019-08-22 14:40 | Outpatient (CLI) | payer MEDICARE, OTHER ==
[2019-08-22 19:47] LABS: HB2 TOTAL 12.3 g/dL; HEMOGLOBIN A1C 0.58 g/dL; HEMOGLOBIN A1C % 6.5 % (4.6-6.2)
== END 2019-08-22 23:59 | disposition home or self-care (01) ==
LOC: LAB.N 14:40
PROVIDERS: ATTEND Nurse Practitioner Gerontology
DX: I26.99 Other pulmonary embolism without acute cor pulmonale (principal); E11.42 Type 2 diabetes mellitus with diabetic polyneuropathy
CPT/HCPCS: 36415; 83036; 85610

== ENCOUNTER 2019-08-29 12:32 | Outpatient (CLI) | payer MEDICARE, OTHER | END 2019-08-29 23:59 | disposition home or self-care (01) | LOC: LAB.N 12:32 | PROVIDERS: ATTEND Nurse Practitioner Gerontology | DX: I26.99 Other pulmonary embolism without acute cor pulmonale (principal) | CPT/HCPCS: 85610 ==

== ENCOUNTER 2019-09-12 15:11 | Outpatient (CLI) | payer MEDICARE, OTHER | END 2019-09-12 23:59 | disposition home or self-care (01) | LOC: LAB.N 15:11 | PROVIDERS: ATTEND Nurse Practitioner Gerontology | DX: I26.99 Other pulmonary embolism without acute cor pulmonale (principal) | CPT/HCPCS: 85610 ==

== ENCOUNTER 2019-09-16 11:52 | Outpatient (CLI) | payer MEDICARE, OTHER | END 2019-09-16 23:59 | disposition home or self-care (01) | LOC: LAB.N 11:52 | PROVIDERS: ATTEND Nurse Practitioner Gerontology | DX: I26.99 Other pulmonary embolism without acute cor pulmonale (principal) | CPT/HCPCS: 85610 ==

== ENCOUNTER 2019-09-23 11:55 | Outpatient (CLI) | payer MEDICARE, OTHER | END 2019-09-23 23:59 | disposition home or self-care (01) | LOC: LAB.N 11:55 | PROVIDERS: ATTEND Nurse Practitioner Gerontology | DX: I26.99 Other pulmonary embolism without acute cor pulmonale (principal) | CPT/HCPCS: 85610 ==

== ENCOUNTER 2019-09-28 14:05 | Outpatient (CLI) | payer MEDICARE, OTHER ==
[2019-09-28 19:07] LABS: CREATININE 1.2 mg/dL (0.4-1.0); URIC ACID 7.6 mg/dL (2.6-7.2)
== END 2019-09-28 23:59 | disposition home or self-care (01) ==
LOC: LAB.N 14:05
PROVIDERS: ATTEND Physician Assistant Medical
DX: E87.6 Hypokalemia (principal); M10.9 Gout, unspecified; I26.99 Other pulmonary embolism without acute cor pulmonale
CPT/HCPCS: 36415; 80048; 84550; 85610

== ENCOUNTER 2019-10-05 12:24 | Outpatient (CLI) | payer MEDICARE, OTHER | END 2019-10-05 23:59 | disposition home or self-care (01) | LOC: LAB.N 12:24 | PROVIDERS: ATTEND Physician Assistant Medical | DX: I26.99 Other pulmonary embolism without acute cor pulmonale (principal) | CPT/HCPCS: 36415; 80048; 84550; 85610 ==

== ENCOUNTER 2019-10-07 11:43 | Outpatient (CLI) | payer MEDICARE, OTHER | END 2019-10-07 23:59 | disposition home or self-care (01) | LOC: LAB.N 11:43 | PROVIDERS: ATTEND Nurse Practitioner Gerontology | DX: I26.99 Other pulmonary embolism without acute cor pulmonale (principal) | CPT/HCPCS: 85610 ==

== ENCOUNTER 2019-10-14 08:00 | Outpatient (CLI) | payer MEDICARE, OTHER | END 2019-10-14 23:59 | LOC: LAB.N 08:00 | PROVIDERS: ATTEND Nurse Practitioner Gerontology | DX: I26.99 Other pulmonary embolism without acute cor pulmonale (principal) | CPT/HCPCS: 85610 ==

== ENCOUNTER 2019-10-21 11:51 | Outpatient (CLI) | payer MEDICARE, OTHER | END 2019-10-21 23:59 | disposition home or self-care (01) | LOC: LAB.N 11:51 | PROVIDERS: ATTEND Nurse Practitioner Gerontology | DX: I26.99 Other pulmonary embolism without acute cor pulmonale (principal) | CPT/HCPCS: 85610 ==

== ENCOUNTER 2019-10-27 08:00 | Outpatient (CLI) | payer MEDICARE, OTHER | END 2019-10-27 23:59 | disposition home or self-care (01) | LOC: LAB.N 08:00 | PROVIDERS: ATTEND Nurse Practitioner Gerontology | DX: I26.99 Other pulmonary embolism without acute cor pulmonale (principal) | CPT/HCPCS: 85610 ==

== ENCOUNTER 2019-11-07 14:45 | Outpatient (CLI) | payer MEDICARE, OTHER | END 2019-11-07 23:59 | disposition home or self-care (01) | LOC: LAB.N 14:45 | PROVIDERS: ATTEND Nurse Practitioner Gerontology | DX: I26.99 Other pulmonary embolism without acute cor pulmonale (principal) | CPT/HCPCS: 85610 ==

== ENCOUNTER 2019-11-08 08:00 | Outpatient (CLI) | payer MEDICARE, OTHER | END 2019-11-08 23:59 | disposition home or self-care (01) | LOC: LAB.N 08:00 | PROVIDERS: ATTEND Nurse Practitioner Gerontology | DX: I26.99 Other pulmonary embolism without acute cor pulmonale (principal) | CPT/HCPCS: 85610 ==

== ENCOUNTER 2019-11-09 08:00 | Outpatient (CLI) | payer MEDICARE, OTHER | END 2019-11-09 23:59 | LOC: LAB.N 08:00 | PROVIDERS: ATTEND Nurse Practitioner Gerontology | DX: I26.99 Other pulmonary embolism without acute cor pulmonale (principal) | CPT/HCPCS: 85610 ==

== ENCOUNTER 2019-11-10 08:00 | Outpatient (CLI) | payer MEDICARE, OTHER | END 2019-11-10 23:59 | LOC: LAB.N 08:00 | PROVIDERS: ATTEND Nurse Practitioner Gerontology | DX: I26.99 Other pulmonary embolism without acute cor pulmonale (principal) | CPT/HCPCS: 85610 ==

== ENCOUNTER 2019-11-28 12:30 | Outpatient (CLI) | payer MEDICARE, OTHER | END 2019-11-28 23:59 | disposition home or self-care (01) | LOC: LAB.N 12:30 | PROVIDERS: ATTEND Nurse Practitioner Gerontology | DX: I26.99 Other pulmonary embolism without acute cor pulmonale (principal) | CPT/HCPCS: 85610 ==

== ENCOUNTER 2019-12-09 14:03 | Outpatient (CLI) | payer MEDICARE, OTHER | END 2019-12-09 23:59 | disposition home or self-care (01) | LOC: LAB.N 14:03 | PROVIDERS: ATTEND Nurse Practitioner Gerontology | DX: I26.99 Other pulmonary embolism without acute cor pulmonale (principal) | CPT/HCPCS: 85610 ==

== ENCOUNTER 2019-12-23 12:00 | Outpatient (CLI) | payer MEDICARE, OTHER | END 2019-12-23 23:59 | disposition home or self-care (01) | LOC: LAB.N 12:00 | PROVIDERS: ATTEND Nurse Practitioner Gerontology | DX: M10.9 Gout, unspecified (principal) | CPT/HCPCS: 36415; 84550; 85610 ==

== ENCOUNTER 2019-12-30 12:13 | Outpatient (CLI) | payer MEDICARE, OTHER | END 2019-12-30 23:59 | disposition home or self-care (01) | LOC: LAB.N 12:13 | PROVIDERS: ATTEND Nurse Practitioner Gerontology | DX: I26.99 Other pulmonary embolism without acute cor pulmonale (principal) | CPT/HCPCS: 85610 ==

== ENCOUNTER 2020-01-27 08:00 | Outpatient (CLI) | payer MEDICARE, OTHER | END 2020-01-27 23:59 | disposition home or self-care (01) | LOC: LAB.WCP 08:00 | PROVIDERS: ATTEND Family Medicine | DX: I48.91 Unspecified atrial fibrillation (principal); Z79.01 Long term (current) use of anticoagulants ==

== ENCOUNTER 2020-03-23 08:00 | Outpatient (CLI) | payer MEDICARE, OTHER | END 2020-03-23 23:59 | disposition home or self-care (01) | LOC: LAB.WCP 08:00 | PROVIDERS: ATTEND Family Medicine | DX: I48.91 Unspecified atrial fibrillation (principal); Z79.01 Long term (current) use of anticoagulants ==

== ENCOUNTER 2020-04-06 08:00 | Outpatient (CLI) | payer MEDICARE, OTHER | END 2020-04-06 23:59 | disposition home or self-care (01) | LOC: LAB.WCP 08:00 | PROVIDERS: ATTEND Physician Assistant | DX: I48.91 Unspecified atrial fibrillation (principal); Z79.01 Long term (current) use of anticoagulants ==

== ENCOUNTER 2020-04-27 08:00 | Outpatient (CLI) | payer MEDICARE, OTHER | END 2020-04-27 23:59 | disposition home or self-care (01) | LOC: LAB.WCP 08:00 | PROVIDERS: ATTEND Physician Assistant | DX: I48.91 Unspecified atrial fibrillation (principal); Z79.01 Long term (current) use of anticoagulants ==

== ENCOUNTER 2020-06-08 08:00 | Outpatient (CLI) | payer MEDICARE, OTHER | END 2020-06-08 23:59 | disposition home or self-care (01) | LOC: LAB.WCP 08:00 | PROVIDERS: ATTEND Physician Assistant | DX: I48.91 Unspecified atrial fibrillation (principal); Z79.01 Long term (current) use of anticoagulants ==

== ENCOUNTER 2020-06-27 08:00 | Outpatient (CLI) | payer MEDICARE, OTHER | END 2020-06-27 23:59 | disposition home or self-care (01) | LOC: LAB.WCP 08:00 | PROVIDERS: ATTEND Physician Assistant | DX: I48.91 Unspecified atrial fibrillation (principal); Z79.01 Long term (current) use of anticoagulants ==

== ENCOUNTER 2020-07-06 08:00 | Outpatient (CLI) | payer MEDICARE, OTHER | END 2020-07-06 23:59 | disposition home or self-care (01) | LOC: LAB.WCP 08:00 | PROVIDERS: ATTEND Family Medicine | DX: Z79.01 Long term (current) use of anticoagulants (principal) ==

== ENCOUNTER 2020-07-13 08:00 | Outpatient (CLI) | payer MEDICARE, OTHER | END 2020-07-13 23:59 | disposition home or self-care (01) | LOC: LAB.WCP 08:00 | PROVIDERS: ATTEND Physician Assistant | DX: Z79.01 Long term (current) use of anticoagulants (principal) ==

== ENCOUNTER 2020-07-27 08:00 | Outpatient (CLI) | payer MEDICARE, OTHER | END 2020-07-27 23:59 | disposition home or self-care (01) | LOC: LAB.WCP 08:00 | PROVIDERS: ATTEND Physician Assistant | DX: Z79.01 Long term (current) use of anticoagulants (principal) ==

== ENCOUNTER 2020-07-28 22:13 | Outpatient (CLI) | payer MEDICARE, OTHER | END 2020-07-28 22:14 | disposition short-term general hospital (02) | LOC: EMS 22:13 | PROVIDERS: ATTEND Surgery | DX: S01.112A Laceration without foreign body of left eyelid and periocular area, initial encounter (principal); W01.0XXA Fall on same level from slipping, tripping and stumbling without subsequent striking against object, initial encounter; Y92.000 Kitchen of unspecified non-institutional (private) residence as the place of occurrence of the external cause; Z79.01 Long term (current) use of anticoagulants | CPT/HCPCS: A0425; A0427 ==

== ENCOUNTER 2020-08-10 08:00 | Outpatient (CLI) | payer MEDICARE, OTHER | END 2020-08-10 23:59 | disposition home or self-care (01) | LOC: LAB.WCP 08:00 | PROVIDERS: ATTEND Physician Assistant | DX: Z79.01 Long term (current) use of anticoagulants (principal) ==

== ENCOUNTER 2020-08-24 08:00 | Outpatient (CLI) | payer MEDICARE, OTHER | END 2020-08-24 23:59 | disposition home or self-care (01) | LOC: LAB.WCP 08:00 | PROVIDERS: ATTEND Physician Assistant | DX: Z79.01 Long term (current) use of anticoagulants (principal) ==

== ENCOUNTER 2020-09-07 08:00 | Outpatient (CLI) | payer MEDICARE, OTHER | END 2020-09-07 23:59 | disposition home or self-care (01) | LOC: LAB.WCP 08:00 | PROVIDERS: ATTEND Physician Assistant | DX: Z79.01 Long term (current) use of anticoagulants (principal) ==

== ENCOUNTER 2020-09-24 08:00 | Outpatient (CLI) | payer MEDICARE, OTHER | END 2020-09-24 23:59 | disposition home or self-care (01) | LOC: LAB.WCP 08:00 | PROVIDERS: ATTEND Nurse Practitioner Family | DX: Z79.01 Long term (current) use of anticoagulants (principal) ==

== ENCOUNTER 2020-10-19 | Outpatient (CLI) | payer MEDICARE, OTHER | END 2020-10-19 11:57 | disposition EMS.NT | DX: Z03.89 Encounter for observation for other suspected diseases and conditions ruled out (principal) ==

== ENCOUNTER 2020-10-22 08:00 | Outpatient (CLI) | payer MEDICARE, OTHER | END 2020-10-22 23:59 | disposition home or self-care (01) | LOC: LAB.WCP 08:00 | PROVIDERS: ATTEND Nurse Practitioner Family | DX: Z79.01 Long term (current) use of anticoagulants (principal) ==

== ENCOUNTER 2020-11-09 08:00 | Outpatient (CLI) | payer MEDICARE, OTHER | END 2020-11-09 23:59 | disposition home or self-care (01) | LOC: LAB.N 08:00 | PROVIDERS: ATTEND Nurse Practitioner Family | DX: Z79.01 Long term (current) use of anticoagulants (principal) ==

== ENCOUNTER 2020-11-16 08:00 | Outpatient (CLI) | payer MEDICARE, OTHER | END 2020-11-16 23:59 | disposition home or self-care (01) | LOC: LAB.N 08:00 | PROVIDERS: ATTEND Nurse Practitioner Family | DX: Z79.01 Long term (current) use of anticoagulants (principal) ==

== ENCOUNTER 2020-11-23 08:00 | Outpatient (CLI) | payer MEDICARE, OTHER | END 2020-11-23 23:59 | disposition home or self-care (01) | LOC: LAB.N 08:00 | PROVIDERS: ATTEND Nurse Practitioner Family | DX: Z79.01 Long term (current) use of anticoagulants (principal) ==

== ENCOUNTER 2020-12-07 08:00 | Outpatient (CLI) | payer MEDICARE, OTHER | END 2020-12-07 23:59 | disposition home or self-care (01) | LOC: LAB.N 08:00 | PROVIDERS: ATTEND Nurse Practitioner Family | DX: Z79.01 Long term (current) use of anticoagulants (principal); I48.91 Unspecified atrial fibrillation ==

== ENCOUNTER 2021-01-04 08:00 | Outpatient (CLI) | payer MEDICARE, OTHER | END 2021-01-04 23:59 | disposition home or self-care (01) | LOC: LAB.N 08:00 | PROVIDERS: ATTEND Nurse Practitioner Family | DX: Z79.01 Long term (current) use of anticoagulants (principal); I48.91 Unspecified atrial fibrillation ==

== ENCOUNTER 2021-01-11 08:00 | Outpatient (CLI) | payer MEDICARE, OTHER | END 2021-01-11 23:59 | disposition home or self-care (01) | LOC: LAB.N 08:00 | PROVIDERS: ATTEND Nurse Practitioner Family | DX: Z79.01 Long term (current) use of anticoagulants (principal); Z79.899 Other long term (current) drug therapy ==

== ENCOUNTER 2021-01-15 10:34 | Outpatient (CLI) | payer MEDICARE, OTHER ==
--- NOTE | 2021-01-16 12:06 | Mammography Report ---
BILATERAL DIGITAL DIAGNOSTIC MAMMOGRAM 3D/2D: 01/15/2021 CLINICAL: Palpable right breast lump. Comparison is made to exams dated: 04/12/2014 mammogram, 12/27/2012 mammogram, 12/22/2011 mammogram, and 12/12/2010 mammogram - [facility]. There are scattered fibroglandular elements in both breasts. There is a 1.3 cm oval focal asymmetry with a circumscribed margin in the right breast at 10 o'clock anterior depth. This is seen in additional views. This has been stable for multiple years. There is a benign coarse calcification in the left breast at 9 o'clock middle depth. No other significant masses or calcifications are seen in either breast. Specifically, no finding to correspond to the patient's right breast 10:00 palpable abnormality. 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 There is no abnormality seen in the right breast to correspond with the palpable abnormality at 10 o' clock in the middle depth. Ultrasound is recommended for full evaluation of this area. This was perf ormed immediately following this exam. This exam was interpreted at Station ID: [id number]. NOTE: For mammograms, a report in lay terms will be sent to the patient. Approximately 15% of breast malignancies will not be visualized mammographically. In the management of a palpable breast mass, a negative mammogram must not discourage biopsy of a clinically suspicious lesion. Electronically Signed By: Chante jasmine/:01/15/2021 13:38:09 ACR BI-RADS Category 0: Incomplete 3340F PARENCHYMAL PATTERN: (A) - The breast(s) demonstrate(s) scattered fibroglandular densities. BI-RADS CATEGORY: (0) - 0 Ultrasound [id number] Immediate follow-up LATERALITY: (B)
--- NOTE | 2021-01-16 12:06 | Ultrasound Report ---
LIMITED ULTRASOUND OF RIGHT BREAST: 01/15/2021 CLINICAL: Palpable right breast lump. Comparison is made to exams dated: 01/15/2021 mammogram, 04/12/2014 mammogram, 12/27/2012 mammogram, 12/22/2011 mammogram, and 12/12/2010 mammogram - [facility]. Ultrasound of the right breast 10 o'clock region was performed. 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 This oval fibroadenoma is hypoechoic. This correlate s with mammography findings. Color flow imaging demonstrates that there is no vascularity present. No sonographic finding to correspond to the patient's palpable abnormality. IMPRESSION: BENIGN There is no abnormality seen in the right breast to correspond with the palpable abnormality at 10 o' clock in the middle depth. The palpated region is consistent with normal fibroglandular tissue. 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 Return to annual mammogram screening schedule is recommended. Findings and recommendations were conveyed to the patient at time of exam. This exam was interpreted at Station ID: [id number]. Electronically Signed By: Chante jasmine/:01/15/2021 13:41:32 Ultrasound BI-RADS: 2 Benign BI-RADS CATEGORY: (2) - 2 RECOMMENDATION: (ANNUAL) - Recommend routine annual screening mammography. [id number] return to screening LATERALITY: (B)
== END 2021-01-15 10:35 | disposition home or self-care (01) ==
LOC: DI 10:34
PROVIDERS: ATTEND Nurse Practitioner Family
DX: D24.1 Benign neoplasm of right breast (principal)

== ENCOUNTER 2021-02-01 08:00 | Outpatient (CLI) | payer MEDICARE, OTHER | END 2021-02-01 23:59 | disposition home or self-care (01) | LOC: LAB.N 08:00 | PROVIDERS: ATTEND Nurse Practitioner Family | DX: I48.91 Unspecified atrial fibrillation (principal); Z79.899 Other long term (current) drug therapy; Z79.01 Long term (current) use of anticoagulants ==

== ENCOUNTER 2021-02-08 08:00 | Outpatient (CLI) | payer MEDICARE, OTHER | END 2021-02-08 23:59 | disposition home or self-care (01) | LOC: LAB.N 08:00 | PROVIDERS: ATTEND Nurse Practitioner Family | DX: I48.91 Unspecified atrial fibrillation (principal); Z79.01 Long term (current) use of anticoagulants ==

== ENCOUNTER 2021-02-15 08:00 | Outpatient (CLI) | payer MEDICARE, OTHER | END 2021-02-15 23:59 | disposition home or self-care (01) | LOC: LAB.N 08:00 | PROVIDERS: ATTEND Nurse Practitioner Family | DX: I48.91 Unspecified atrial fibrillation (principal); Z79.01 Long term (current) use of anticoagulants ==

== ENCOUNTER 2021-02-27 08:00 | Outpatient (CLI) | payer MEDICARE, OTHER | END 2021-02-27 23:59 | disposition home or self-care (01) | LOC: LAB.N 08:00 | PROVIDERS: ATTEND Nurse Practitioner Family | DX: Z79.01 Long term (current) use of anticoagulants (principal); I48.91 Unspecified atrial fibrillation ==

== ENCOUNTER 2021-03-13 12:06 | Outpatient (CLI) | payer MEDICARE, OTHER ==
[2021-03-13 17:57] LABS: BASOPHILS % (AUTO) 0.6 %; EOSINOPHILS # (AUTO) 0.1 10^3/uL (0.0-0.7); EOSINOPHILS % (AUTO) 1.9 %; HCT - HEMATOCRIT 40.3 % (37.0-47.0); HGB - HEMOGLOBIN 12.4 g/dL (12.0-16.0); LYMPHOCYTES # (AUTO) 1.9 10^3/uL (1.5-3.5); LYMPHOCYTES % (AUTO) 25.7 %; MEAN CORPUSCULAR HEMOGLOBIN 30.5 pg (27.0-31.0); MEAN CORPUSCULAR HGB CONC 30.8 g/dL (32.0-36.0); MEAN CORPUSCULAR VOLUME 99.3 fL (81.0-99.0); MEAN PLATELET VOLUME 10.2 fL (7.9-10.8); MONOCYTES # (AUTO) 0.5 10^3/uL (0.0-1.0); MONOCYTES % (AUTO) 7.5 %; NEUTROPHILS # (AUTO) 4.6 10^3/uL (1.5-6.6); NEUTROPHILS % (AUTO) 63.9 %; PLT - PLATELET COUNT 279 10^3/uL (130-450); RED BLOOD COUNT 4.06 10^6/uL (4.20-5.40); RED CELL DISTRIBUTION WIDTH 13.5 % (12.0-15.0); WHITE BLOOD COUNT 7.2 x10^3/uL (4.8-10.8)
[2021-03-13 18:16] LABS: ALBUMIN/GLOBULIN RATIO 1.3 (1.0-2.2); ALKALINE PHOSPHATASE 71 IU/L (42-121); ALT ALANINE AMINOTRANSFERASE 13 IU/L (10-60); AST ASPARTATE AMINOTRANSFERASE 19 IU/L (10-42); BILIRUBIN,TOTAL 0.6 mg/dL (0.2-1.0); BUN - BLOOD UREA NITROGEN 17 mg/dL (6-20); CARBON DIOXIDE - CO2 32 mmol/L (21-32); CHLORIDE 103 mmol/L (101-111); CHOL/HDL RATIO 3.3 (<4.4); CHOLESTEROL 204 mg/dL; GFR - MDRD 53 (>89); GLUCOSE 141 mg/dL (70-100); HDL CHOLESTEROL 62 mg/dL; LDL CHOLESTEROL,CALCULATED 114 mg/dL; LDL/HDL RATIO 1.8 (<4.4); POTASSIUM 4.1 mmol/L (3.5-5.0); SODIUM 140 mmol/L (135-145); TRIGLYCERIDES 141 mg/dL; VLDL CHOLESTEROL 28 mg/dL
[2021-03-13 18:27] LABS: THYROID STIMULATING HORMONE 1.34 uIU/mL (0.34-5.60)
[2021-03-13 20:26] LABS: ESTIMATED AVERAGE GLUCOSE 140 mg/dL (70-100); HEMOGLOBIN A1c% 6.5 % (4.27-6.07)
== END 2021-03-13 23:59 | disposition home or self-care (01) ==
LOC: LAB.WCP 12:06
PROVIDERS: ATTEND Nurse Practitioner Family
DX: E11.42 Type 2 diabetes mellitus with diabetic polyneuropathy (principal); E78.5 Hyperlipidemia, unspecified
CPT/HCPCS: 36415; 80053; 80061; 83036; 83721; 84443; 85025

== ENCOUNTER 2021-03-20 08:00 | Outpatient (CLI) | payer MEDICARE, OTHER | END 2021-03-20 23:59 | disposition home or self-care (01) | LOC: LAB.N 08:00 | PROVIDERS: ATTEND Nurse Practitioner Family | DX: I48.91 Unspecified atrial fibrillation (principal); Z79.01 Long term (current) use of anticoagulants ==

== ENCOUNTER → 2021-04-10 | Outpatient (CLI) | payer MEDICARE, OTHER | LOC: LAB.WCP 08:00 | PROVIDERS: ATTEND Nurse Practitioner Family | DX: Z79.01 Long term (current) use of anticoagulants (principal); I48.91 Unspecified atrial fibrillation ==

== ENCOUNTER 2021-04-17 08:00 | Outpatient (CLI) | payer MEDICARE, OTHER | END 2021-04-17 23:59 | disposition home or self-care (01) | LOC: LAB.WCP 08:00 | PROVIDERS: ATTEND Internal Medicine | DX: Z79.01 Long term (current) use of anticoagulants (principal); I48.91 Unspecified atrial fibrillation ==

== ENCOUNTER 2021-04-26 08:00 | Outpatient (CLI) | payer MEDICARE, OTHER | END 2021-04-26 23:59 | disposition home or self-care (01) | LOC: LAB.WCP 08:00 | PROVIDERS: ATTEND Internal Medicine | DX: I48.91 Unspecified atrial fibrillation (principal); Z79.01 Long term (current) use of anticoagulants ==

== ENCOUNTER 2021-05-10 14:03 | Outpatient (CLI) | payer MEDICARE, OTHER ==
[2021-05-10 17:42] LABS: BASOPHILS % (AUTO) 0.5 %; EOSINOPHILS # (AUTO) 0.2 10^3/uL (0.0-0.7); EOSINOPHILS % (AUTO) 2.4 %; HCT - HEMATOCRIT 37.3 % (37.0-47.0); HGB - HEMOGLOBIN 11.6 g/dL (12.0-16.0); LYMPHOCYTES # (AUTO) 1.9 10^3/uL (1.5-3.5); MEAN CORPUSCULAR HEMOGLOBIN 31.4 pg (27.0-31.0); MEAN CORPUSCULAR HGB CONC 31.1 g/dL (32.0-36.0); MEAN CORPUSCULAR VOLUME 101.1 fL (81.0-99.0); MEAN PLATELET VOLUME 10.8 fL (7.9-10.8); MONOCYTES # (AUTO) 0.6 10^3/uL (0.0-1.0); MONOCYTES % (AUTO) 7.5 %; NEUTROPHILS # (AUTO) 4.7 10^3/uL (1.5-6.6); NEUTROPHILS % (AUTO) 63.1 %; PLT - PLATELET COUNT 244 10^3/uL (130-450); RED BLOOD COUNT 3.69 10^6/uL (4.20-5.40); RED CELL DISTRIBUTION WIDTH 13.4 % (12.0-15.0); WHITE BLOOD COUNT 7.4 x10^3/uL (4.8-10.8)
[2021-05-10 17:52] LABS: ALBUMIN 3.9 g/dL (3.2-5.5); ALBUMIN/GLOBULIN RATIO 1.4 (1.0-2.2); BILIRUBIN,TOTAL 0.6 mg/dL (0.2-1.0); CALCIUM 9.2 mg/dL (8.5-10.3); POTASSIUM 4.7 mmol/L (3.5-5.0); TOTAL PROTEIN 6.6 g/dL (6.7-8.2)
[2021-05-10 17:53] LABS: PT - PROTHROMBIN TIME 21.8 secs (9.9-12.6)
[2021-05-10 20:33] LABS: ESTIMATED AVERAGE GLUCOSE 140 mg/dL (70-100); HEMOGLOBIN A1c% 6.5 % (4.27-6.07)
== END 2021-05-10 14:04 | disposition home or self-care (01) ==
LOC: LAB.N 14:03
PROVIDERS: ATTEND Internal Medicine
DX: I48.91 Unspecified atrial fibrillation (principal); Z79.01 Long term (current) use of anticoagulants; E11.9 Type 2 diabetes mellitus without complications
CPT/HCPCS: 36415; 80053; 83036; 85025; 85610

== ENCOUNTER 2021-05-31 08:00 | Outpatient (CLI) | payer MEDICARE, OTHER | END 2021-05-31 23:59 | disposition home or self-care (01) | LOC: LAB.WCP 08:00 | PROVIDERS: ATTEND Internal Medicine | DX: I48.91 Unspecified atrial fibrillation (principal); Z79.01 Long term (current) use of anticoagulants ==

== ENCOUNTER 2021-06-07 08:00 | Outpatient (CLI) | payer MEDICARE, OTHER | END 2021-06-07 23:59 | disposition home or self-care (01) | LOC: LAB.WCP 08:00 | PROVIDERS: ATTEND Internal Medicine | DX: I48.91 Unspecified atrial fibrillation (principal); Z79.01 Long term (current) use of anticoagulants ==

== ENCOUNTER 2021-06-21 08:00 | Outpatient (CLI) | payer MEDICARE, OTHER | END 2021-06-21 23:59 | disposition home or self-care (01) | LOC: LAB.WCP 08:00 | PROVIDERS: ATTEND Internal Medicine | DX: Z79.01 Long term (current) use of anticoagulants (principal); I48.91 Unspecified atrial fibrillation ==

== ENCOUNTER 2021-06-26 08:00 | Outpatient (CLI) | payer MEDICARE, OTHER | END 2021-06-26 23:59 | disposition home or self-care (01) | LOC: LAB.WCP 08:00 | PROVIDERS: ATTEND Internal Medicine | DX: I48.91 Unspecified atrial fibrillation (principal); Z79.01 Long term (current) use of anticoagulants ==

== ENCOUNTER 2021-07-12 08:00 | Outpatient (CLI) | payer MEDICARE, OTHER ==
[2021-07-12 17:37] LABS: BASOPHILS % (AUTO) 0.4 %; EOSINOPHILS # (AUTO) 0.1 10^3/uL (0.0-0.7); EOSINOPHILS % (AUTO) 0.9 %; HCT - HEMATOCRIT 37.1 % (37.0-47.0); HGB - HEMOGLOBIN 11.4 g/dL (12.0-16.0); LYMPHOCYTES # (AUTO) 1.3 10^3/uL (1.5-3.5); LYMPHOCYTES % (AUTO) 17.6 %; MEAN CORPUSCULAR HEMOGLOBIN 30.5 pg (27.0-31.0); MEAN CORPUSCULAR HGB CONC 30.7 g/dL (32.0-36.0); MEAN CORPUSCULAR VOLUME 99.2 fL (81.0-99.0); MEAN PLATELET VOLUME 10.3 fL (7.9-10.8); MONOCYTES # (AUTO) 0.7 10^3/uL (0.0-1.0); MONOCYTES % (AUTO) 9.1 %; NEUTROPHILS # (AUTO) 5.4 10^3/uL (1.5-6.6); NEUTROPHILS % (AUTO) 71.2 %; PLT - PLATELET COUNT 276 10^3/uL (130-450); RED BLOOD COUNT 3.74 10^6/uL (4.20-5.40); WHITE BLOOD COUNT 7.6 x10^3/uL (4.8-10.8)
[2021-07-12 17:53] LABS: ALBUMIN 3.9 g/dL (3.2-5.5); ALBUMIN/GLOBULIN RATIO 1.3 (1.0-2.2); BILIRUBIN,TOTAL 0.5 mg/dL (0.2-1.0); POTASSIUM 4.6 mmol/L (3.5-5.0); TOTAL PROTEIN 6.9 g/dL (6.7-8.2)
== END 2021-07-12 23:59 | disposition home or self-care (01) ==
LOC: LAB.WCP 08:00
PROVIDERS: ATTEND Nurse Practitioner
DX: U07.1 COVID-19 (principal)
CPT/HCPCS: 36415; 80053; 85025; U0004

== ENCOUNTER 2021-08-02 08:00 | Outpatient (CLI) | payer MEDICARE, OTHER | END 2021-08-02 23:59 | disposition home or self-care (01) | LOC: LAB.N 08:00 | PROVIDERS: ATTEND Nurse Practitioner | DX: Z79.01 Long term (current) use of anticoagulants (principal); I48.91 Unspecified atrial fibrillation ==

== ENCOUNTER 2021-08-23 08:00 | Outpatient (CLI) | payer MEDICARE, OTHER | END 2021-08-23 23:59 | disposition home or self-care (01) | LOC: LAB.WCP 08:00 | PROVIDERS: ATTEND Nurse Practitioner | DX: I48.91 Unspecified atrial fibrillation (principal); Z79.01 Long term (current) use of anticoagulants ==

== ENCOUNTER 2021-09-20 08:00 | Outpatient (CLI) | payer MEDICARE, OTHER | END 2021-09-20 23:59 | disposition home or self-care (01) | LOC: LAB.N 08:00 | PROVIDERS: ATTEND Nurse Practitioner | DX: I48.91 Unspecified atrial fibrillation (principal); Z79.01 Long term (current) use of anticoagulants ==

== ENCOUNTER 2021-10-25 08:00 | Outpatient (CLI) | payer MEDICARE, OTHER | END 2021-10-25 23:59 | disposition home or self-care (01) | LOC: LAB.N 08:00 | PROVIDERS: ATTEND Nurse Practitioner | DX: I48.91 Unspecified atrial fibrillation (principal); Z79.01 Long term (current) use of anticoagulants ==

== ENCOUNTER 2021-11-01 08:00 | Outpatient (CLI) | payer MEDICARE, OTHER | END 2021-11-01 23:59 | disposition home or self-care (01) | LOC: LAB.N 08:00 | PROVIDERS: ATTEND Nurse Practitioner | DX: I48.91 Unspecified atrial fibrillation (principal); Z79.01 Long term (current) use of anticoagulants ==

== ENCOUNTER 2021-11-08 08:00 | Outpatient (CLI) | payer MEDICARE, OTHER | END 2021-11-08 23:59 | disposition home or self-care (01) | LOC: LAB.N 08:00 | PROVIDERS: ATTEND Nurse Practitioner | DX: I48.91 Unspecified atrial fibrillation (principal); Z79.01 Long term (current) use of anticoagulants ==

== ENCOUNTER 2021-11-15 08:00 | Outpatient (CLI) | payer MEDICARE, OTHER | END 2021-11-15 23:59 | disposition home or self-care (01) | LOC: LAB.N 08:00 | PROVIDERS: ATTEND Nurse Practitioner | DX: I48.91 Unspecified atrial fibrillation (principal); Z79.01 Long term (current) use of anticoagulants ==

== ENCOUNTER 2021-11-22 08:00 | Outpatient (CLI) | payer MEDICARE, OTHER | END 2021-11-22 23:59 | disposition home or self-care (01) | LOC: LAB.WCP 08:00 | PROVIDERS: ATTEND Nurse Practitioner | DX: I48.91 Unspecified atrial fibrillation (principal); Z79.01 Long term (current) use of anticoagulants ==

== ENCOUNTER 2021-12-02 08:00 | Outpatient (CLI) | payer MEDICARE, OTHER | END 2021-12-02 23:59 | disposition home or self-care (01) | LOC: LAB.WCP 08:00 | PROVIDERS: ATTEND Nurse Practitioner Family | DX: I48.91 Unspecified atrial fibrillation (principal); Z79.01 Long term (current) use of anticoagulants ==

== ENCOUNTER 2021-12-06 08:00 | Outpatient (CLI) | payer MEDICARE, OTHER | END 2021-12-06 23:59 | disposition home or self-care (01) | LOC: LAB.N 08:00 | PROVIDERS: ATTEND Nurse Practitioner Family | DX: I48.91 Unspecified atrial fibrillation (principal); Z79.01 Long term (current) use of anticoagulants ==

== ENCOUNTER 2021-12-20 11:32 | Outpatient (CLI) | payer MEDICARE, OTHER ==
[2021-12-20 21:00] LABS: ESTIMATED AVERAGE GLUCOSE 126 mg/dL (70-100)
== END 2021-12-20 11:33 | disposition home or self-care (01) ==
LOC: LAB.N 11:32
PROVIDERS: ATTEND Nurse Practitioner
DX: E11.42 Type 2 diabetes mellitus with diabetic polyneuropathy (principal)
CPT/HCPCS: 36415; 83036

== ENCOUNTER 2022-02-07 13:28 | Outpatient (CLI) | payer MEDICARE, OTHER | END 2022-02-07 23:59 | disposition home or self-care (01) | LOC: LAB.N 13:28 | PROVIDERS: ATTEND Nurse Practitioner | DX: I48.91 Unspecified atrial fibrillation (principal) | CPT/HCPCS: 36416; 85610 ==

== ENCOUNTER 2022-02-25 12:49 | Outpatient (CLI) | payer MEDICARE, OTHER | END 2022-02-25 12:50 | disposition home or self-care (01) | LOC: LAB.N 12:49 | PROVIDERS: ATTEND Internal Medicine | DX: I48.91 Unspecified atrial fibrillation (principal); Z79.01 Long term (current) use of anticoagulants | CPT/HCPCS: 36416; 85610 ==

== ENCOUNTER 2022-03-25 08:00 | Outpatient (CLI) | payer MEDICARE, OTHER | END 2022-03-25 23:59 | disposition home or self-care (01) | LOC: LAB.N 08:00 | PROVIDERS: ATTEND Internal Medicine | DX: I48.91 Unspecified atrial fibrillation (principal); Z79.01 Long term (current) use of anticoagulants | CPT/HCPCS: 85610 ==

== ENCOUNTER 2022-04-22 11:10 | Outpatient (CLI) | payer MEDICARE, OTHER | END 2022-04-22 11:11 | disposition home or self-care (01) | LOC: LAB.N 11:10 | PROVIDERS: ATTEND Nurse Practitioner | DX: I48.91 Unspecified atrial fibrillation (principal); Z79.01 Long term (current) use of anticoagulants | CPT/HCPCS: 36416; 85610 ==

== ENCOUNTER 2022-05-20 10:46 | Outpatient (CLI) | payer MEDICARE, OTHER ==
[2022-05-20 18:29] LABS: BASOPHILS # (AUTO) 0.1 10^3/uL (0.0-0.1); BASOPHILS % (AUTO) 0.6 %; EOSINOPHILS # (AUTO) 0.3 10^3/uL (0.0-0.7); HCT - HEMATOCRIT 41.3 % (37.0-47.0); LYMPHOCYTES # (AUTO) 2.5 10^3/uL (1.5-3.5); LYMPHOCYTES % (AUTO) 30.6 %; MEAN CORPUSCULAR HGB CONC 31.5 g/dL (32.0-36.0); MEAN CORPUSCULAR VOLUME 98.6 fL (81.0-99.0); MEAN PLATELET VOLUME 11.2 fL (7.9-10.8); MONOCYTES # (AUTO) 0.6 10^3/uL (0.0-1.0); MONOCYTES % (AUTO) 7.6 %; NEUTROPHILS # (AUTO) 4.8 10^3/uL (1.5-6.6); NEUTROPHILS % (AUTO) 57.4 %; PLT - PLATELET COUNT 326 10^3/uL (130-450); RED BLOOD COUNT 4.19 10^6/uL (4.20-5.40); RED CELL DISTRIBUTION WIDTH 13.2 % (12.0-15.0); WHITE BLOOD COUNT 8.3 x10^3/uL (4.8-10.8)
[2022-05-20 18:33] LABS: ALBUMIN/GLOBULIN RATIO 1.2 (1.0-2.2); ALKALINE PHOSPHATASE 99 IU/L (42-121); ALT ALANINE AMINOTRANSFERASE 13 IU/L (10-60); AST ASPARTATE AMINOTRANSFERASE 19 IU/L (10-42); BILIRUBIN,TOTAL 0.5 mg/dL (0.2-1.0); BUN - BLOOD UREA NITROGEN 29 mg/dL (6-20); CALCIUM 10.1 mg/dL (8.5-10.3); CARBON DIOXIDE - CO2 29 mmol/L (21-32); CHLORIDE 99 mmol/L (101-111); CHOL/HDL RATIO 5.6 (<4.4); CHOLESTEROL 296 mg/dL; CREATININE 1.2 mg/dL (0.4-1.0); GFR - MDRD 42 (>89); GLUCOSE 149 mg/dL (70-100); HDL CHOLESTEROL 53 mg/dL; LDL CHOLESTEROL,CALCULATED 186 mg/dL; LDL/HDL RATIO 3.5 (<4.4); POTASSIUM 4.5 mmol/L (3.5-5.0); SODIUM 137 mmol/L (135-145); TOTAL PROTEIN 7.4 g/dL (6.7-8.2); TRIGLYCERIDES 286 mg/dL; URIC ACID 6.5 mg/dL (2.6-7.2); VLDL CHOLESTEROL 57 mg/dL
[2022-05-20 18:46] LABS: THYROID STIMULATING HORMONE 2.06 uIU/mL (0.34-5.60)
[2022-05-20 19:06] LABS: CREATININE,URINE 17.7 mg/dL
[2022-05-20 19:07] LABS: MICROALBUMIN,URINE < 0.2 mg/dL (0-300.0)
[2022-05-20 20:43] LABS: ESTIMATED AVERAGE GLUCOSE 154 mg/dL (70-100)
== END 2022-05-20 10:47 | disposition home or self-care (01) ==
LOC: LAB.N 10:46
PROVIDERS: ATTEND Nurse Practitioner
DX: I11.0 Hypertensive heart disease with heart failure (principal); I50.9 Heart failure, unspecified; E11.9 Type 2 diabetes mellitus without complications; I48.91 Unspecified atrial fibrillation; M10.9 Gout, unspecified; Z79.01 Long term (current) use of anticoagulants
CPT/HCPCS: 36415; 80053; 80061; 82043; 82570; 83036; 83721; 84443; 84550; 85025; 85610

== ENCOUNTER 2022-07-10 13:09 | Outpatient (CLI) | payer MEDICARE, OTHER | END 2022-07-10 13:10 | disposition home or self-care (01) | LOC: LAB.N 13:09 | PROVIDERS: ATTEND Internal Medicine | DX: Z79.01 Long term (current) use of anticoagulants (principal); I48.91 Unspecified atrial fibrillation | CPT/HCPCS: 85610 ==

== ENCOUNTER 2022-07-17 12:21 | Outpatient (CLI) | payer MEDICARE, OTHER | END 2022-07-17 12:22 | disposition home or self-care (01) | LOC: LAB.N 12:21 | PROVIDERS: ATTEND Internal Medicine | DX: Z79.01 Long term (current) use of anticoagulants (principal); I48.91 Unspecified atrial fibrillation | CPT/HCPCS: 36416; 85610 ==

== ENCOUNTER 2022-12-02 10:20 | Outpatient (CLI) | payer MEDICARE, OTHER | END 2022-12-02 10:21 | disposition home or self-care (01) | LOC: LAB.N 10:20 | PROVIDERS: ATTEND Internal Medicine | DX: Z79.01 Long term (current) use of anticoagulants (principal); I48.91 Unspecified atrial fibrillation | CPT/HCPCS: 36416; 85610 ==

== ENCOUNTER 2022-12-03 20:52 | Outpatient (CLI) | payer MEDICARE, OTHER | END 2022-12-03 20:53 | disposition EMS.NT | LOC: EMS 20:52 | DX: R11.2 Nausea with vomiting, unspecified (principal) ==

== ENCOUNTER 2023-01-01 09:44 | Outpatient (CLI) | payer MEDICARE, OTHER ==
[2023-01-01 11:34] LABS: INR 2.5 (0.8-1.2); PT - PROTHROMBIN TIME 26.3 secs (9.9-12.6)
[2023-01-01 12:13] LABS: ESTIMATED AVERAGE GLUCOSE 166 mg/dL (70-100); HEMOGLOBIN A1c% 7.4 % (4.27-6.07)
== END 2023-01-01 09:45 | disposition home or self-care (01) ==
LOC: LAB.N 09:44
PROVIDERS: ATTEND Nurse Practitioner
DX: E11.9 Type 2 diabetes mellitus without complications (principal); I48.91 Unspecified atrial fibrillation
CPT/HCPCS: 36415; 83036; 85610

== ENCOUNTER 2023-01-29 09:49 | Outpatient (CLI) | payer MEDICARE, OTHER ==
[2023-01-29 11:45] LABS: INR 3.3 (0.8-1.2); PT - PROTHROMBIN TIME 34.5 secs (9.9-12.6)
== END 2023-01-29 09:50 | disposition home or self-care (01) ==
LOC: LAB.N 09:49
PROVIDERS: ATTEND Internal Medicine
DX: Z79.01 Long term (current) use of anticoagulants (principal); I48.91 Unspecified atrial fibrillation
CPT/HCPCS: 36415; 85610

== ENCOUNTER 2023-02-05 11:13 | Outpatient (CLI) | payer MEDICARE, OTHER ==
[2023-02-05 18:05] LABS: INR 3.5 (0.8-1.2); PT - PROTHROMBIN TIME 35.6 secs (9.9-12.6)
== END 2023-02-05 11:14 | disposition home or self-care (01) ==
LOC: LAB.N 11:13
PROVIDERS: ATTEND Internal Medicine
DX: Z79.01 Long term (current) use of anticoagulants (principal); I48.91 Unspecified atrial fibrillation
CPT/HCPCS: 36415; 85610

== ENCOUNTER 2023-03-10 10:37 | Outpatient (CLI) | payer MEDICARE, OTHER ==
[2023-03-10 12:15] LABS: INR 2.4 (0.8-1.2); PT - PROTHROMBIN TIME 25.2 secs (9.9-12.6)
== END 2023-03-10 10:38 | disposition home or self-care (01) ==
LOC: LAB.N 10:37
PROVIDERS: ATTEND Internal Medicine
DX: Z79.01 Long term (current) use of anticoagulants (principal); I48.91 Unspecified atrial fibrillation
CPT/HCPCS: 36415; 85610

== ENCOUNTER 2023-03-27 08:16 | Outpatient (CLI) | payer MEDICARE, OTHER ==
[2023-03-27 12:46] LABS: THYROID STIMULATING HORMONE 2.08 uIU/mL (0.34-5.60)
[2023-03-27 12:48] LABS: ALBUMIN 3.6 g/dL (3.2-5.5); ALBUMIN/GLOBULIN RATIO 1.1 (1.0-2.2); ALKALINE PHOSPHATASE 91 IU/L (42-121); ALT ALANINE AMINOTRANSFERASE 19 IU/L (10-60); AST ASPARTATE AMINOTRANSFERASE 22 IU/L (10-42); BILIRUBIN,TOTAL 0.5 mg/dL (0.2-1.0); BUN - BLOOD UREA NITROGEN 24 mg/dL (6-20); CALCIUM 9.5 mg/dL (8.5-10.3); CARBON DIOXIDE - CO2 28 mmol/L (21-32); CHLORIDE 109 mmol/L (101-111); CHOL/HDL RATIO 5.3 (<4.4); CHOLESTEROL 252 mg/dL; CREATININE 1.1 mg/dL (0.4-1.0); GFR - MDRD 47 (>89); GLUCOSE 182 mg/dL (70-100); HDL CHOLESTEROL 48 mg/dL; LDL CHOLESTEROL,CALCULATED 173 mg/dL; LDL/HDL RATIO 3.6 (<4.4); POTASSIUM 4.8 mmol/L (3.5-5.0); SODIUM 142 mmol/L (135-145); TOTAL PROTEIN 6.9 g/dL (6.7-8.2); TRIGLYCERIDES 156 mg/dL; VLDL CHOLESTEROL 31 mg/dL
[2023-03-27 12:50] LABS: ESTIMATED AVERAGE GLUCOSE 192 mg/dL (70-100); HEMOGLOBIN A1c% 8.3 % (4.27-6.07)
== END 2023-03-27 08:17 | disposition home or self-care (01) ==
LOC: LAB.N 08:16
PROVIDERS: ATTEND Physician Assistant Medical
DX: E11.9 Type 2 diabetes mellitus without complications (principal); E55.9 Vitamin D deficiency, unspecified
CPT/HCPCS: 36415; 80053; 80061; 82306; 83036; 83721; 84443

== ENCOUNTER 2023-04-07 09:17 | Outpatient (CLI) | payer MEDICARE, OTHER | END 2023-04-07 09:18 | disposition home or self-care (01) | LOC: LAB.N 09:17 | PROVIDERS: ATTEND Internal Medicine | DX: Z79.01 Long term (current) use of anticoagulants (principal); I48.91 Unspecified atrial fibrillation | CPT/HCPCS: 36416; 85610 ==

== ENCOUNTER 2023-06-11 13:10 | Outpatient (CLI) | payer MEDICARE, OTHER | END 2023-06-11 13:11 | disposition home or self-care (01) | LOC: LAB.N 13:10 | PROVIDERS: ATTEND Nurse Practitioner | DX: I48.91 Unspecified atrial fibrillation (principal); Z79.01 Long term (current) use of anticoagulants | CPT/HCPCS: 85610 ==

== ENCOUNTER 2023-09-03 10:13 | Outpatient (CLI) | payer MEDICARE, OTHER | END 2023-09-03 10:14 | disposition home or self-care (01) | LOC: LAB.N 10:13 | PROVIDERS: ATTEND Internal Medicine | DX: Z79.01 Long term (current) use of anticoagulants (principal); I48.91 Unspecified atrial fibrillation | CPT/HCPCS: 36416; 85610 ==

== ENCOUNTER 2023-09-11 11:08 | Outpatient (CLI) | payer MEDICARE, OTHER ==
[2023-09-11 18:43] LABS: INR 2.5 (0.8-1.2); PT - PROTHROMBIN TIME 25.7 secs (9.9-12.6)
[2023-09-11 21:26] LABS: ESTIMATED AVERAGE GLUCOSE 192 mg/dL (70-100); HEMOGLOBIN A1c% 8.3 % (4.27-6.07)
== END 2023-09-11 11:09 | disposition home or self-care (01) ==
LOC: LAB.N 11:08
PROVIDERS: ATTEND Nurse Practitioner
DX: E11.9 Type 2 diabetes mellitus without complications (principal); I48.91 Unspecified atrial fibrillation; Z79.01 Long term (current) use of anticoagulants
CPT/HCPCS: 36415; 83036; 85610

== ENCOUNTER 2023-10-20 13:27 | Outpatient (CLI) | payer MEDICARE, OTHER | END 2023-10-20 13:28 | disposition home or self-care (01) | LOC: LAB.N 13:27 | PROVIDERS: ATTEND Internal Medicine | DX: I48.91 Unspecified atrial fibrillation (principal); Z79.01 Long term (current) use of anticoagulants | CPT/HCPCS: 36416; 85610 ==

== ENCOUNTER 2023-11-24 12:51 | Outpatient (CLI) | payer MEDICARE, OTHER | END 2023-11-24 12:52 | disposition home or self-care (01) | LOC: LAB.N 12:51 | PROVIDERS: ATTEND Internal Medicine | DX: I48.91 Unspecified atrial fibrillation (principal); Z79.01 Long term (current) use of anticoagulants | CPT/HCPCS: 36416; 85610 ==

== ENCOUNTER 2024-01-21 14:49 | Outpatient (CLI) | payer MEDICARE, OTHER ==
--- NOTE | 2024-01-21 18:16 | Ultrasound Report ---
PROCEDURE: Carotid Doppler Complete INDICATIONS: CORONARY ATHEROSCLEROSIS TECHNIQUE: Color and pulse Doppler interrogation was performed of both carotid systems, with image documentation and velocity measurements. COMPARISON: None. FINDINGS: Evaluation is markedly limited secondary to patient body habitus and tortuosity of the vas culature. Right side: Brachial blood pressure: 149 mm Hg. Common carotid artery peak systolic velocity: 63.6 cm/sec. Internal carotid artery peak systolic velocity: 123 cm/sec. Internal carotid artery end diastolic velocity: 27.3 cm/sec. External carotid artery peak systolic velocity: 63.4 cm/sec. ICA/CCA peak systolic ratio: 1.9 . Alonso scale imaging description: Mild atherosclerotic plaque. Vessels are markedly tortuous. Percent internal carotid artery stenosis: Less than 50 percent stenosis. Vertebral artery: Flow direction is antegrade. Left side: Brachial blood pressure: 132 mm Hg. Common carotid artery peak systolic velocity: 54.4 cm/sec. Internal carotid artery peak systolic velocity: 84.1 cm/sec. Internal carotid artery end diastolic velocity: 21.7 cm/sec. External carotid artery peak systolic velocity: 60 cm/sec. ICA/CCA peak systolic ratio: 1.5 . Alonso scale imaging description: Mild atherosclerotic plaque. Vessels are markedly tortuous. Percent internal carotid artery stenosis: Less than 50 percent stenosis. Vertebral artery: Flow direction is antegrade. IMPRESSION: Evaluation is markedly limited secondary to patient body habitus and tortuosity of the v asculature. Within these limitations: 1. In the right internal carotid artery, there is less than 50 percent stenosis based on peak systoli c velocity criteria. 2. In the left internal carotid artery, there is less than 50 percent stenosis based on peak systolic velocity criteria. 3. Antegrade blood flow within the right vertebral artery. 4. Antegrade blood flow within the left vertebral artery. The estimate of stenosis included in the report of the imaging study was calculated using the [facility]-end orsed standards of carotid artery stenosis. Reviewed by: Renee De Paz MD on 01/21/2024 6:14 PM PDT Approved by: Renee De Paz MD on 01/21/2024 6:14 PM PDT Station ID: [id number]
== END 2024-01-21 14:50 | disposition home or self-care (01) ==
LOC: DI 14:49
PROVIDERS: ATTEND Nurse Practitioner Family
DX: I25.10 Atherosclerotic heart disease of native coronary artery without angina pectoris (principal); I65.23 Occlusion and stenosis of bilateral carotid arteries
CPT/HCPCS: 93880

== ENCOUNTER 2024-04-07 13:43 | Outpatient (CLI) | payer MEDICARE, OTHER | END 2024-04-07 23:59 | disposition critical access hospital (66) | LOC: EMS 13:43 | DX: R10.31 Right lower quadrant pain (principal); R19.7 Diarrhea, unspecified; Z79.01 Long term (current) use of anticoagulants | CPT/HCPCS: A0425; A0429 ==

== ENCOUNTER 2024-04-07 14:03 | Emergency (ER) | payer MEDICARE, OTHER ==
--- NOTE | 2024-04-07 14:28 | ED Physician Documentation ---
PD HPI ABD PAIN - Stated complaint Stated Complaint: ABD PX - Chief complaint Chief Complaint: Abd Pain - Additional information Additional information: 88-year-old female with history of hypertension, coronary artery disease, atrial fibrillation, anticoagulated on Coumadin, type 2 diabetes, GERD presents emergency department via EMS from assisted living facility for right lower quadrant pain. Patient says that she has been feeling ill with nausea vomiting diarrhea and had a rough night last night but says that this started about 4 to 5 days ago. Patient says that right now she is overall feeling well and started to feel better soon as she got to the ambulance. Unsure if she has had any fevers or chills. When asked if she still has her appendix she says that she does not know. She denies any history or diagnoses of Alzheimer's or dementia. PD PAST MEDICAL HISTORY - Past Medical History Cardiovascular: Hypertension, Coronary artery disease, Atrial fibrillation Respiratory: None Endocrine/Autoimmune: Type 2 diabetes GI: GERD : None, Incontinence, Renal insuffiency HEENT: None Psych: Depression Musculoskeletal: Osteoarthritis, Gout Derm: Other - Past Surgical History Ortho: Knee replacement /MANAGER INSTRUMENTATION: Hysterectomy Cardiovascular: CABG HEENT: Tonsil/Adenoidectomy - Present Medications Home Medications: Ambulatory Orders Medication Instructions Recorded Confirmed Insulin Glargine [Lantus] 15 unit SUBQ BID 08/17/14 04/07/24 Trazodone HCl 100 mg PO QPM 08/17/14 04/07/24 Venlafaxine HCl [Effexor Xr] 225 mg PO DAILY 08/17/14 04/07/24 Warfarin [Coumadin] 4 mg PO 1400 08/17/14 04/07/24 Doxepin HCl [Silenor] 6 mg PO DAILY 04/07/24 04/07/24 Famotidine [Pepcid] 20 mg PO BID 04/07/24 04/07/24 Furosemide [Lasix] 80 mg PO DAILY 04/07/24 04/07/24 Insulin Aspart [NovoLOG] 5 unit SUBQ TIDWM 04/07/24 04/07/24 Metoprolol Succinate [Toprol Xl] 25 mg PO ONCE 04/07/24 04/07/24 Mirtazapine 15 mg PO DAILY 04/07/24 04/07/24 Ondansetron Odt [Zofran Odt] 4 mg TL Q6H PRN #10 tablet 04/07/24 Tolterodine Tartrate [Detrol LA] 4 mg PO DAILY 04/07/24 04/07/24 allopurinoL [Zyloprim] 100 mg PO DAILY 04/07/24 04/07/24 lisinopriL [Zestril] 5 mg PO ONCE 04/07/24 04/07/24 - Allergies Allergies/Adverse Reactions: Allergies Allergy/AdvReac Type Severity Reaction Status Date / Time morphine Allergy Unknown Verified 04/07/24 14:19 - Social History Does the pt smoke?: No Smoking Status: Never smoker Does the pt drink ETOH?: No Does the pt have substance abuse?: No PD ED PE NORMAL - Vitals Vital signs reviewed: Yes - General General: Alert and oriented X 3, No acute distress, Well developed/nourished - HEENT HEENT: Atraumatic, PERRL - Cardiac Cardiac: RRR - Respiratory Respiratory: No respiratory distress, Clear bilaterally - Abdomen Abdomen: Normal bowel sounds, Soft, Non distended, No organomegaly, Other (RLQ tenderness) - Back Back: No CVA TTP - Derm Derm: Normal color, Warm and dry, No rash Results - Vitals Vitals: Vital Signs - 24 hr 04/07/24 04/07/24 14:16 16:18 Temperature 36.7 C Heart Rate 91 65 Respiratory 16 18 Rate Blood Pressure 148/60 H 123/54 L O2 Saturation 99 99 Oxygen O2 Source Room air - Labs Labs: Laboratory Tests 04/07/24 04/07/24 04/07/24 14:30 14:51 14:51 WBC 7.6 RBC 3.91 L Hgb 11.9 L Hct 38.4 MCV 98.2 MCH 30.4 MCHC 31.0 L RDW 13.2 Plt Count 266 MPV 10.1 Neut # (Auto) 4.0 Lymph # (Auto) 2.7 [place] # (Auto) 0.6 Eos # (Auto) 0.2 Baso # (Auto) 0.1 Absolute Nucleated RBC 0.00 Nucleated RBC % 0.0 PT INR Sodium 139 Potassium 4.6 H Chloride 105 Carbon Dioxide 28 Anion Gap 6.0 BUN 25 H Creatinine 1.6 H Estimated GFR (MDRD) 30 L Glucose 133 H Calcium 10.0 Magnesium 2.0 Total Bilirubin 0.2 AST 16 ALT 11 Alkaline Phosphatase 71 Total Protein 6.7 Albumin 3.8 Globulin 2.9 Albumin/Globulin Ratio 1.3 Lipase 17 Urine Color YELLOW Urine Clarity CLEAR Urine pH 6.0 Ur Specific [place] 1.010 Urine Protein NEGATIVE Urine Glucose (UA) NEGATIVE Urine Ketones NEGATIVE Urine Occult Blood TRACE-INTA Urine Nitrite NEGATIVE Urine Bilirubin NEGATIVE Urine Urobilinogen 0.2 (NORMAL) Ur Leukocyte Esterase NEGATIVE Ur Microscopic Review NOT INDICATED Urine Culture Comments NOT INDICATED 04/07/24 14:51 WBC RBC Hgb Hct MCV MCH MCHC RDW Plt Count MPV Neut # (Auto) Lymph # (Auto) [place] # (Auto) Eos # (Auto) Baso # (Auto) Absolute Nucleated RBC Nucleated RBC % PT 26.1 H INR 2.5 H Sodium Potassium Chloride Carbon Dioxide Anion Gap BUN Creatinine Estimated GFR (MDRD) Glucose Calcium Magnesium Total Bilirubin AST ALT Alkaline Phosphatase Total Protein Albumin Globulin Albumin/Globulin Ratio Lipase Urine Color Urine Clarity Urine pH Ur Specific [place] Urine Protein Urine Glucose (UA) Urine Ketones Urine Occult Blood Urine Nitrite Urine Bilirubin Urine Urobilinogen Ur Leukocyte Esterase Ur Microscopic Review Urine Culture Comments - Rads (name of study) Abdomen pelvis CT with Relevant Findings:: Final report received, EMP independent interpretation of test, Other (No hydronephrosis patchy right basilar pulmonary radiopacity possibly aspiration) PD Medical Decision Making - ED course ED course: 88-year-old female presents emergency department for nausea vomiting diarrhea and right lower quadrant pain that has now fully resolved. When patient first arrived she says that she does not know why she is here when asked her how she is feeling she says she feels great. Nilson called to let the nurse know that the patient was up vomiting all night and walked into the hallway and supposedly collapsed. Patient does not endorse numbness. Does not sound like she hit her head making me suspicious to further workup for head CT. Abdomen pelvis CT with out was complete and revealed some patchy right basilar pulmonary radiopacity is suspicious for possible aspiration no other acute intra-abdominal findings. Patient was able to eat and drink here without any difficulties. As she was discharging she stated that she was starting to have some right groin pain which seem to be more musculoskeletal versus intra-abdominal. Labs are complete for further evaluation she has no leukocytosis making less suspicious for some sort of underlying infection urinalysis is unremarkable slightly hyperkalemic 4.6, BUN elevated 25 creatinine 1.6 and GFR 30 this is worse than patient's baseline this acute kidney injury is most likely due to dehydration is most likely prerenal. She is doing quite well she is safe for discharge she is going back to [facility] return precautions given and Patient was told that she needed to have a repeat x-ray in about a week or so.She was given a liter of IV fluid here in the emergency department to help with her dehydration. She is up and walking around without any difficulty and appears quite comfortable. Departure - Departure Disposition: 01 Home, Self Care Clinical Impression: Hyperkalemia, Dehydration, ARIELA (acute kidney injury), Nausea & vomiting Instructions: Abdominal Pain, ED Dehydration Prescriptions: Ondansetron Odt [Zofran Odt] 4 mg TL Q6H PRN #10 tablet PRN Reason: Nausea / Vomiting Comments: Thank you for trusting us with your care. We have completed labs and it does appear that you are dehydrated so was given you a liter of IV fluids here in the emergency department you are able to keep your fluids down without any antinausea medications. The CT of your abdomen results are below it did reveal some pulmonary abnormalities most likely due to aspiration and we were recommending having a repeat x-ray done in about a week or 2 with your primary care provider for further evaluation of this. We do not see any other acute abnormalities or findings on your CT scan. We have also tested you for viruses and we will call you or [facility] if this comes back positive for anything. I have sent a prescription of Zofran to your preferred pharmacy on file and you can take this again as needed for any symptoms of nausea and vomiting that you experienced again. Eat a bland diet moving forward for the next couple days as you start to reintroduce food back into your body. PT NAME: HEMANTH CARSON MR#: [id number] REG ER/ED AGE: 88 CI DT/TM: 04/07/24 PCP: YANA Coronado : 1935 ATT: SEX: F ORD: Maribell Abraham BULK PIGMENT REDUCER EXAM: CT/ABPEWO ([id number]) PROCEDURE: Abdomen/Pelvis WO INDICATIONS: RLQ pain TECHNIQUE: A CT scan of the abdomen and pelvis was performed without the use of intravenous contrast. Images were recorded and evaluated at appropriate window settings. Reformats: coronal and sagittal. For radiation dose reduction, the following was used: automated exposure control, adjustment of mA and/or kV according to patient size. COMPARISON: None. FINDINGS: Image quality: Diagnostic. Lower chest: Patchy airspace opacities are present at the right lung base. A 5 mm pulmonary nodule is present at the right lung base (series 8/image 4). No pleural effusion or pneumothorax. Liver: No contour-deforming mass. Gallbladder: Surgically absent. Biliary tree: No intrahepatic or extrahepatic dilation, accounting for age. Spleen: No splenomegaly. Pancreas: There is fatty atrophy of the pancreas. Adrenals: No adrenal nodule. Kidneys and ureters: No hydronephrosis. No contour-deforming mass. A low density cystic lesion is present within the upper pole of the left kidney. Stomach, bowel and peritoneum: No gastric or small bowel dilation. No abnormal wall thickening. No pathologic free fluid. The appendix is thin-walled and gas-filled. There are extensive colonic diverticular outpouchings. No mucosal thickening or pericolonic fat stranding to suggest acute diverticulitis. Lymph nodes: No central or retroperitoneal adenopathy. Vessels: No infrarenal aortic aneurysm. Atheromatous calcifications are present throughout the abdominal aorta. Reproductive organs: Unremarkable. Bladder: Bladder wall thickness is normal, accounting for underdistention. No calcified bladder stones. Pelvic lymph nodes: No adenopathy by size criteria. Bones: No aggressive osseous abnormality. Degenerative changes are present throughout the lumbar spine. Other: No significant ventral or inguinal hernia. IMPRESSION: 1. No hydronephrosis, nephrolithiasis, hydroureter, or ureterolithiasis. 2. Patchy right basilar pulmonary radiopacity suspicious for aspiration/infection. Short interval follow-up recommended. 3. No acute intra-abdominal findings. Normal appendix. 4. Extensive colonic diverticulosis. No acute diverticulitis. Forms: PCP List
[2024-04-07] MEDS ORDERED: iohexoL-300 100 ML VIAL ONE (14:35)
[2024-04-07 15:08] LABS: BASOPHILS # (AUTO) 0.1 10^3/uL (0.0-0.1); BASOPHILS % (AUTO) 0.7 %; EOSINOPHILS # (AUTO) 0.2 10^3/uL (0.0-0.7); EOSINOPHILS % (AUTO) 2.4 %; HCT - HEMATOCRIT 38.4 % (37.0-47.0); HGB - HEMOGLOBIN 11.9 g/dL (12.0-16.0); LYMPHOCYTES # (AUTO) 2.7 10^3/uL (1.5-3.5); LYMPHOCYTES % (AUTO) 36.2 %; MEAN CORPUSCULAR HEMOGLOBIN 30.4 pg (27.0-31.0); MEAN CORPUSCULAR VOLUME 98.2 fL (81.0-99.0); MEAN PLATELET VOLUME 10.1 fL (7.9-10.8); MONOCYTES # (AUTO) 0.6 10^3/uL (0.0-1.0); MONOCYTES % (AUTO) 8.2 %; NEUTROPHILS % (AUTO) 52.2 %; PLT - PLATELET COUNT 266 10^3/uL (130-450); RED BLOOD COUNT 3.91 10^6/uL (4.20-5.40); RED CELL DISTRIBUTION WIDTH 13.2 % (12.0-15.0); WHITE BLOOD COUNT 7.6 x10^3/uL (4.8-10.8)
[2024-04-07 15:09] LABS: BILIRUBIN,URINE NEGATIVE (NEGATIVE); GLUCOSE, URINE (UA) NEGATIVE (NEGATIVE); KETONES,URINE (UA) NEGATIVE (NEGATIVE); LEUKOCYTE ESTERASE, URINE NEGATIVE (NEGATIVE); NITRITE,URINE NEGATIVE (NEGATIVE); OCCULT BLOOD,URINE TRACE-INTA (NEGATIVE); PROTEIN,URINE NEGATIVE (NEGATIVE); UROBILINOGEN,URINE 0.2 (NORMAL) E.U./dL (NORMAL)
[2024-04-07 15:27] LABS: INR 2.5 (0.8-1.2); PT - PROTHROMBIN TIME 26.1 secs (9.9-12.6)
[2024-04-07 15:33] LABS: CLARITY,URINE CLEAR (CLEAR)
[2024-04-07 15:37] LABS: ALBUMIN 3.8 g/dL (3.2-5.5); ALBUMIN/GLOBULIN RATIO 1.3 (1.0-2.2); BILIRUBIN,TOTAL 0.2 mg/dL (0.2-1.0); CREATININE 1.6 mg/dL (0.6-1.3); POTASSIUM 4.6 mmol/L (3.5-4.5); TOTAL PROTEIN 6.7 g/dL (6.4-8.9)
[2024-04-07] MEDS: SODIUM CHLORIDE 0.9% 1,000 ML IV ONE (16:09)
--- NOTE | 2024-04-07 17:00 | CT Report ---
PROCEDURE: Abdomen/Pelvis WO INDICATIONS: RLQ pain TECHNIQUE: A CT scan of the abdomen and pelvis was performed without the use of intravenous contrast. Images we re recorded and evaluated at appropriate window settings. Reformats: coronal and sagittal. For radiat ion dose reduction, the following was used: automated exposure control, adjustment of mA and/or kV ac cording to patient size. COMPARISON: None. FINDINGS: Image quality: Diagnostic. Lower chest: Patchy airspace opacities are present at the right lung base. A 5 mm pulmonary nodule is present at the right lung base (series 8/image 4). No pleural effusion or pneumothorax. Liver: No contour-deforming mass. Gallbladder: Surgically absent. Biliary tree: No intrahepatic or extrahepatic dilation, accounting for age. Spleen: No splenomegaly. Pancreas: There is fatty atrophy of the pancreas. Adrenals: No adrenal nodule. Kidneys and ureters: No hydronephrosis. No contour-deforming mass. A low density cystic lesion is pre sent within the upper pole of the left kidney. Stomach, bowel and peritoneum: No gastric or small bowel dilation. No abnormal wall thickening. No pa thologic free fluid. The appendix is thin-walled and gas-filled. There are extensive colonic divertic ular outpouchings. No mucosal thickening or pericolonic fat stranding to suggest acute diverticulitis . Lymph nodes: No central or retroperitoneal adenopathy. Vessels: No infrarenal aortic aneurysm. Atheromatous calcifications are present throughout the abdomi nal aorta. Reproductive organs: Unremarkable. Bladder: Bladder wall thickness is normal, accounting for underdistention. No calcified bladder stone s. Pelvic lymph nodes: No adenopathy by size criteria. Bones: No aggressive osseous abnormality. Degenerative changes are present throughout the lumbar spin e. Other: No significant ventral or inguinal hernia. IMPRESSION: 1. No hydronephrosis, nephrolithiasis, hydroureter, or ureterolithiasis. 2. Patchy right basilar pulmonary radiopacity suspicious for aspiration/infection. Short interval fol low-up recommended. 3. No acute intra-abdominal findings. Normal appendix. 4. Extensive colonic diverticulosis. No acute diverticulitis. Reviewed by: Lian Au MD on 04/07/2024 4:58 PM PDT Approved by: Lian Au MD on 04/07/2024 4:58 PM PDT Station ID: [id number]
[2024-04-07] MEDS: ACETAMINOPHEN 325 MG TABLET PO STA (18:14)
[2024-04-07 18:31] LABS: B. PARAPERTUSSIS- RESP PCR PAN NOT DETECTED; B. PERTUSSIS- RESP PCR PANEL NOT DETECTED; C. PNEUMONIAE- RESP PCR PANEL NOT DETECTED; CORONAVIRUS 229E-RESP PCR NOT DETECTED; CORONAVIRUS HKU1-RESP PCR NOT DETECTED; CORONAVIRUS NL63-RESP PCR NOT DETECTED; CORONAVIRUS OC43-RESP PCR NOT DETECTED; HUMAN METAPNEUMOVIRUS NOT DETECTED; INFLUENZA A- RESP PCR PANEL NOT DETECTED; INFLUENZA B - RESP PCR PANEL NOT DETECTED; M. PNEUMONIAE- RESP PCR PANEL NOT DETECTED; PARAINFLUENZA VIRUS 1 NOT DETECTED; PARAINFLUENZA VIRUS 2 NOT DETECTED; PARAINFLUENZA VIRUS 3 NOT DETECTED; PARAINFLUENZA VIRUS 4 NOT DETECTED; RHINOVIRUS/ENTEROVIRUS NOT DETECTED; RSV- RESP PCR PANEL NOT DETECTED; SARS-CoV-2 -RESP PCR PANEL NOT DETECTED
[2024-04-07 18:51] VITALS: BP 128/62; O2SAT 98
== END 2024-04-07 18:42 | disposition home or self-care (01) ==
LOC: EDUNIT# → ED 14:03
DX: N17.9 Acute kidney failure, unspecified (principal); E87.5 Hyperkalemia; E86.0 Dehydration; R11.2 Nausea with vomiting, unspecified; E11.9 Type 2 diabetes mellitus without complications; I10 Essential (primary) hypertension; Z11.52 Encounter for screening for COVID-19; Z79.4 Long term (current) use of insulin
CPT/HCPCS: 36415; 74176; 80053; 81003; 83690; 83735; 85025; 85610; 87040; 87633; 96360; 96361; 99284; A9270; 81001; 87086